=== PATIENT | female | born 1960 | race Caucasian/White ===

== ENCOUNTER → 2016-05-11 | Outpatient (CLI) | payer OTHER ==
[~2016-05-11] VITALS: Ht 167.6 cm; Wt 62.8 kg
[~2016-05-11] MED LIST: ATV/1 PO; CEFAZOLIN 2000 MG/60 ML D5W IV SCH; CLR10 PO; CYCL10TA6 PO; FLUT50SP45 NAE; GABA800T PO; HYDR-5688 PO; LACTATED RINGER'S 1000ML 1,000 ML IV SCH; LEVO175T PO; MELATAB2 PO; NAPR-1169 PO; OXYC1TAB3 PO; PANT40TA PO; PRD/1 PO; PREGABALIN 75 MG CAP PO SCH; PRLSR20 PO; PSYL0.524 PO; RANI300T2 PO; ZOLP5TAB PO
[2016-05-11 09:06] VITALS: BMI 22.0
[2016-05-11 09:19] VITALS: Ht 167.6 cm; Wt 62.8 kg
--- NOTE | 2016-05-11 09:44 | PAT Medication Instructions ---
Service Date May 11, 2016. Current Home Medication List Gabapentin (Neurontin), 800 MG PO TID Levothyroxine Sodium (Synthroid), 175 MCG PO QAM Lorazepam (Ativan), 1 MG PO TID PRN for Anxiety Naproxen (Naprosyn), 500 MG PO PRN Omeprazole (Prilosec), 20 MG PO prn Psyllium (Metamucil), 1 DOSE PO QAM Zolpidem Tartrate (Ambien), 5 MG PO HS Medication Instructions For Your Scheduled Surgery - Hold the following medications per surgeon's instructions: Naproxen (Naprosyn), 500 MG PO PRN - Hold the following medications the morning of surgery: Psyllium (Metamucil), 1 DOSE PO QAM - Take the following medications the morning of surgery with a sip of water OTHERWISE NOTHING TO EAT OR DRINK AFTER MIDNIGHT: Gabapentin (Neurontin), 800 MG PO TID Levothyroxine Sodium (Synthroid), 175 MCG PO QAM Lorazepam (Ativan), 1 MG PO TID PRN for Anxiety Omeprazole (Prilosec), 20 MG PO prn - Take the following medications as scheduled the night before surgery: Zolpidem Tartrate (Ambien), 5 MG PO HS Gabapentin (Neurontin), 800 MG PO TID If you have any questions please call us at [phone] or [phone] or [phone]
[2016-05-11 10:18] LABS: BASO % 0.6 %; BASO ABS # 0.03 K/uL (0-0.2); COMPLETE YES; EOS % 3.1 %; HEMATOCRIT 38.7 % (37-47); IG% 0.4 %; LYMPH % 27.9 %; LYMPH ABS # 1.44 K/uL (1.2-3.4); MEAN CORPUSCULAR HEMOGLOBIN 29.3 pg (25-34); MEAN CORPUSCULAR HGB CONC 34.1 g/dl (32-36); MEAN PLATELET VOLUME 9.1 fL (7.4-10.4); MONO % 8.5 %; NEUT % 59.5 %; PLATELET COUNT 220 K/uL (130-400); WHITE BLOOD COUNT 5.17 K/uL (4.8-10.8)
--- NOTE | 2016-05-11 10:19 | DIAGNOSTIC IMAGING REPORT ---
CHEST PREADMISSION(PA/LAT) HISTORY: Preop. COMPARISON: Chest 03/25/2014. FINDINGS: The lungs are clear. Cardiac silhouette is normal in size. No pleural effusions. No pneumothorax. IMPRESSION: No acute process. Electronically signed by: Duane Harris M.D. 05/11/2016 10:18 AM Dictated Date/Time: 05/11/2016 10:16 AM
== END | disposition home or self-care (01) ==
LOC: C.LAB 08:00 → EDSTATUS 06-02 09:00
PROVIDERS: ATTEND Orthopaedic Surgery Orthopaedic Surgery of the Spine
DX: Z01.810 Encounter for preprocedural cardiovascular examination (principal); Z01.811 Encounter for preprocedural respiratory examination; Z01.812 Encounter for preprocedural laboratory examination

== ENCOUNTER 2016-05-28 14:20 | Emergency (ER) | payer OTHER ==
[~2016-05-28] VITALS: Ht 167.6 cm; Wt 63.5 kg
[~2016-05-28 14:20] MED LIST changes: -CEFAZOLIN 2000 MG/60 ML D5W IV SCH; -CLR10 PO; -CYCL10TA6 PO; -FLUT50SP45 NAE; -HYDR-5688 PO; -LACTATED RINGER'S 1000ML 1,000 ML IV SCH; -MELATAB2 PO; -OXYC1TAB3 PO; -PANT40TA PO; -PRD/1 PO; -PREGABALIN 75 MG CAP PO SCH; -PRLSR20 PO; -RANI300T2 PO
[2016-05-28 14:36] VITALS: TEMP 36.7; Ht 167.6 cm; Wt 63.5 kg
[2016-05-28] MEDS ORDERED: KETOROLAC TROMETHAMINE 60 MG/2 ML VIAL IM STA (15:02)
[2016-05-28] MEDS ORDERED: OXYC1TAB3 PO (15:04)
[2016-05-28] MEDS ORDERED: CYCL10TA6 PO (15:04)
--- NOTE | 2016-05-28 15:06 | EMERGENCY ROOM VISIT NOTE ---
History First contact with patient: 14:45 Chief Complaint: BACK PAIN Stated Complaint: BACK AND LEG PAIN History of Present Illness The patient is a 55 year old female who presents to the Emergency Room via private vehicle with complaints of "back and leg pain". The patient states that last night around 9 PM, she noticed pain in the right low back extending down the posterior portion of the right leg to level of the knee. She notes it is worse with standing and walking. She rates the pain is a 3/10. She believes she may have had this before. She states that she follows with Dr. Prabhakar of [facility] for her spine. She is scheduled for an appointment on Tuesday. She at this time denies any chest pain, shortness of breath, history of kidney stones, urinary symptoms, lower extremity weakness, numbness or tingling in genital region. There is urinary incontinence of which the patient notes is chronic and unrelated. Review of Systems A complete 6-point Review of Systems was discussed with the patient, with pertinent positives and negatives listed in the History of Present Illness. All remaining Review of Systems questions can be considered negative unless otherwise specified. Past Medical/Surgical History Stomach problems, gallbladder ailments, urinary problems, diverticulitis, hiatal hernia, cholecystectomy, spinal fusion Family History Cancer, emphysema and leukemia. Social History Smoking Status: Former Smoker Social History: Patient lives at home with boyfriend. Current/Historical Medications Scheduled Cyclobenzaprine Hcl (Flexeril), 10 MG PO TID Gabapentin (Neurontin), 800 MG PO TID Levothyroxine Sodium (Synthroid), 175 MCG PO QAM Psyllium (Metamucil), 1 DOSE PO QAM Scheduled PRN Lorazepam (Ativan), 1 MG PO TID PRN for Anxiety Naproxen (Naprosyn), 500 MG PO BID PRN for Pain Omeprazole (Prilosec), 20 MG PO QAM PRN for Acid Reflux Oxycodone Ir (Roxicodone Ir), 1-2 TAB PO Q6H PRN for Pain Zolpidem Tartrate (Ambien), 5 MG PO HS PRN for Sleep Allergies Coded Allergies: Sulfamethoxazole w/Trimethoprim (Verified Allergy, Unknown, itching, ) Physical Exam Vital Signs Date Time Temp Pulse Resp B/P Pulse Ox O2 Delivery O2 Flow Rate FiO2 05/28/16 15:13 80 16 116/77 97 Room Air 05/28/16 14:36 36.7 76 16 122/82 98 Room Air Physical Exam VITAL SIGNS - Vital signs and nursing notes were reviewed. Afebrile, normotensive, non-tachycardic and is saturating well on room air 98%. GENERAL -55 [id number] female appearing her stated age who is in no acute distress. Communicates well with provider and answers questions appropriately. SKIN - Without rashes. No petechiae or meningeal rashes. The skin overlying the back is unremarkable. HEAD - NC/AT. NECK - Neck with FROM. Supple to palpation. No lymphadenopathy noted. No nuchal rigidity. No C-spine tenderness. MUSCULOSKELETAL: No tenderness to palpation overlying the entire spine. There is right inferior lumbar paraspinous muscular tenderness that extends into the right gluteal region extending down the right posterior leg to the level of the knee. LUNGS - Chest wall symmetric without accessory muscle use, intercostals retractions, or central cyanosis. Normal vesicular breath sounds CTA B/L. No wheezes, rales, or rhonchi appreciated. CARDIAC - RRR with S1/S2. No murmur, rubs, or gallops appreciated. ABDOMEN - Abdominal contour Without pulsations or visible masses. BS normoactive all four quadrants. No tenderness, palpable masses, hepatosplenomegaly, or ascites noted. EXTREMITIES - No clubbing or peripheral cyanosis. No pretibial edema present. +3 /5 radial, posterior tibial, and dorsalis pedis pulses palpated throughout. +5/ 5 strength noted in UE/LE bilaterally.negative straight leg raise. She is neurovascularly intact in the lower extremity. Medical Decision & Procedures Medications Administered Medications (Trade) Dose Ordered Sig/Lilliana Route Start Time Stop Time Status Last Admin Dose Admin Ketorolac Tromethamine (Toradol Inj) 60 mg NOW STAT IM 05/28/16 15:02 05/28/16 15:03 DC 05/28/16 15:10 60 MG Medical Decision Patient was seen and evaluated as above. After obtaining a thorough history and physical examination it was evident the patient was experiencing likely right lumbar strain, with potential piriformis syndrome. I do not believe that this time radiographs are imaging would be of benefit. The patient presents with symptoms suggestive of nerve irritation of the right lower extremity. I do not suspect any emergent MRI at this time. She denied any cauda equina syndrome symptoms, and has no urinary symptoms. No history of kidney stone. The pain is reducible palpation. She will be provided with a short-term supply of pain medication. Here she was provided with 60 mg of Toradol IM. She will be discharged home with OxyIR and Flexeril. I do not write steroids at this time, she has a surgery scheduled for the near future I do not want to disrupt potential blood work. She was educated upon management, is to return with worsening, educated upon worrisome symptoms which to return, and was discharged home in good condition. In evaluation treatment this patient following differential diagnoses were entertained: Lumbar strain, piriformis syndrome, cauda equina syndrome, among others. [place] Drug Monitoring Program Search Results: patient reviewed within database, no issues identified Impression Primary Impression: Strain of lumbar region Additional Impression: Right lumbar radiculopathy Departure Information Dispostion Home / Self-Care Condition GOOD Prescriptions Cyclobenzaprine Hcl (FLEXERIL) 10 Mg Tab 10 MG PO TID for 5 Days, #15 TAB Prov: Behzad Mcclendon PA-C 05/28/16 Oxycodone Ir (Roxicodone Ir) 5 Mg Tab 1-2 TAB PO Q6H Y for Pain, #15 TAB For Initial Treatment Prov: Behzad Mcclendon PA-C 05/28/16 Referrals César Heredia M.D. (PCP) Patient Instructions My [facility] Additional Instructions You have been treated in the Emergency Department for Back Pain. You have been prescribed Oxy IR to be used for pain control. This is a narcotic medication. You cannot drive or consume alcohol while on this medicine. This medicine should only be used for pain that cannot be controlled with over-the- counter pain medicines. You have been prescribed Flexeril (cyclobenzaprine) 1 tabs orally, three times per day. Do NOT exceed 30 mg (6 tabs) per day. Take your first dose at bedtime as it can make you drowsy. Always take all medications as prescribed. For pain control, you can use the following [id number] medicines (if >12 yo): - Regular strength (325mg/tab) Tylenol (acetaminophen) 2 tabs every 4-6 hours as needed. Do not exceed 12 tablets in a 24 hour period. Avoid taking more than 3 grams (3000 mg) of Tylenol per day. This includes any other sources of acetaminophen you may take on a regular basis. - Regular strength (200 mg/tab) Advil (ibuprofen) 1-2 tabs every 4-6 hours as needed. Do not exceed a dose of 3200 mg per day. If this is an acute injury, ice can be applied to the area of pain for the first 3 days to help decrease pain and inflammation. After the first 3 days, a heating pad can be used over the area for continued soothing relief. Please keep your appointment for Tuesday with Dr. Prabhakar. Return to the Emergency Department if your current symptoms worsen despite treatment course outlined above, or if you develop any of the following symptoms : intractable pain despite aforementioned treatment course, loss of control of your bowel or bladder, numbness or tingling in your groin, or development of a fever. Please return to emergency department with any new/concerning symptoms. Problem Qualifiers
[2016-05-28 15:13] VITALS: BP 116/77; PULSE 80; O2SAT 97
[2016-05-28] MEDS ORDERED: PRLSR20 PO (15:36)
[2016-08-19] MEDS ORDERED: PANT40TA PO (14:12)
[2016-08-19] MEDS ORDERED: CLR10 PO (14:12)
[2016-08-19] MEDS ORDERED: FLUT50SP45 NAE (14:12)
[2016-08-19] MEDS ORDERED: RANI300T2 PO (14:12)
== END 2016-05-28 15:30 | disposition home or self-care (01) ==
LOC: C.EDB 14:21 → C.EDD 15:30
DX: S39.012A Strain of muscle, fascia and tendon of lower back, initial encounter (principal); X58.XXXA Exposure to other specified factors, initial encounter; M54.16 Radiculopathy, lumbar region; Z80.9 Family history of malignant neoplasm, unspecified; Z83.6 Family history of other diseases of the respiratory system; Z87.891 Personal history of nicotine dependence; Z79.899 Other long term (current) drug therapy

== ENCOUNTER 2016-06-06 12:19 | Emergency (ER) | payer OTHER ==
[~2016-06-06] VITALS: Ht 167.6 cm; Wt 65.0 kg
[~2016-06-06 12:19] MED LIST changes: +OXYC1TAB3 PO; +PRLSR20 PO
[2016-06-06 12:22] VITALS: TEMP 36.7; Ht 167.6 cm; Wt 65.0 kg
--- NOTE | 2016-06-06 14:02 | DIAGNOSTIC IMAGING REPORT ---
MRI OF THE LUMBAR SPINE WITHOUT CONTRAST CLINICAL HISTORY: Severe back pain. Right leg weakness and numbness. COMPARISON STUDY: Lumbar spine fluoroscopic images April 04, 2014. TECHNIQUE: Utilizing a 1.5 Ayanna magnet and dedicated coil, multiplanar, multiecho imaging of the lumbar spine was performed without IV contrast. FINDINGS: For purposes of numbering on this exam, the L5-S1 disc space is assigned to axial image 23 of 25. There are findings consistent with an L4-L5 discectomy, posterior decompression and bilateral pedicle screw fusion. No intracanalicular mass or fluid collection is present. The conus terminates at the lower L1 level. Paravertebral soft tissues are unremarkable. L1-2: The central canal and neural foramen are patent. L2-3: There is mild disc bulge, ligamentous hypertrophy and facet arthrosis. There is a possible right paracentral disc protrusion with mass effect upon the exiting right L2 nerve root. L3-4: There is disc bulge, ligamentous hypertrophy and facet arthrosis. There is mild narrowing of the central canal, lateral recesses and neural foramen. L4-5: Central canal and neural foramen are patent. L5-S1: Central canal and neural foramen are patent. IMPRESSION: 1. Status post L4-5 discectomy, posterior decompression and bilateral pedicle screw fusion. 2. Suspected right paracentral disc protrusion at L2-L3 with mild mass effect upon the exiting right L2 nerve root. 3. Mild central canal, lateral recess and neural foraminal stenosis at L3-L4. Electronically signed by: Kraig Gay M.D. 06/06/2016 2:00 PM Dictated Date/Time: 06/06/2016 1:51 PM
[2016-06-06] MEDS ORDERED: DEXAMETHASONE SOD INJ 10 MG/ML VIAL IM ONE (14:45)
[2016-06-06 14:59] VITALS: BP 105/83; PULSE 90; O2SAT 98
--- NOTE | 2016-06-06 17:57 | EMERGENCY ROOM VISIT NOTE ---
History Report prepared by Raheel: Catracho Dale Under the Supervision of: Dr. Keanu Burton M.D. First contact with patient: 12:33 Chief Complaint: BACK PAIN Stated Complaint: SEVERE BACK PAIN History of Present Illness The patient is a 55 year old female who presents to the Emergency Room with complaints of constant right lower back pain beginning ten days prior to arrival. She currently rates her discomfort as an 8/10 in severity. The patient associates back pain that radiates down her right leg to her right knee and numbness in the front of her right thigh. She notes the numbness began five days ago and states the sensation feels different when scratching. The patient states her symptoms worsen with standing and walking. She denies falling. The patient states she took a sleeping pill after the onset, and the following morning she came to the ED for evaluation. She notes she was scheduled for neck surgery the following Tuesday, but when she went to see Dr. Prabhakar on Tuesday that he cancelled the neck surgery. The patient states her orthopedist gave her Tramadol that did not relieve her discomfort. She notes he was going to order an MRI but never got an appointment for it, so he called a nurse at her insurance company, who referred the patient to the ED. The patient notes a history of back surgery two years ago. She denies loss of control of her bowel or bladder, numbness in the genitals, fever, and abdominal pain. Source of History: patient Onset: 10 days [employer] Position: back (right lower) Symptom Intensity: 8/10 Timing: constant Modifying Factors (Worsening): other (standing and walking) Associated Symptoms: + back pain (radiates down her right leg to her right knee ), + numbness (in front of right thigh), No abdominal pain, No fevers, No urinary symptoms Review of Systems See HPI for pertinent positives & negatives. A total of 10 systems reviewed and were otherwise negative. Past Medical & Surgical Medical Problems: (1) Diverticulitis (2) Hiatal hernia (3) IBS (irritable bowel syndrome) Surgical Problems: (1) S/P cholecystectomy (2) S/P spinal fusion Family History Cancer Social History Smoking Status: Former Smoker Marital Status: Occupation Status: unemployed Current/Historical Medications Scheduled Gabapentin (Neurontin), 800 MG PO TID Levothyroxine Sodium (Synthroid), 175 MCG PO QAM Psyllium (Metamucil), 2 TBS PO QAM Scheduled PRN Lorazepam (Ativan), 1 MG PO TID PRN for Anxiety Naproxen (Naprosyn), 500 MG PO BID PRN for Pain Omeprazole (Prilosec), 20 MG PO QAM PRN for Acid Reflux Zolpidem Tartrate (Ambien), 5 MG PO HS PRN for Sleep Allergies Coded Allergies: Sulfamethoxazole w/Trimethoprim (Verified Allergy, Unknown, itching, ) Physical Exam Vital Signs Date Time Temp Pulse Resp B/P Pulse Ox O2 Delivery O2 Flow Rate FiO2 06/06/16 14:59 90 16 105/83 98 Room Air 06/06/16 14:00 90 16 108/77 97 Room Air 06/06/16 12:22 36.7 102 20 121/80 94 Room Air Physical Exam Constitutional: Vital signs reviewed. Eyes: Pupils are equal round reactive to light. Conjunctiva are noninjected. ENT: Pharynx is clear without erythema or exudate. Mucous membranes are moist. Neck supple without meningeal signs. Respiratory: Clear to auscultation bilaterally. Breath sounds are equal bilaterally. Cardiovascular: Regular rate and rhythm. No rubs or gallops. GI: Soft, nondistended and nontender. Bowel sounds are present. Musculoskeletal: No peripheral edema. No lower extremity tenderness. Integumentary: No cyanosis. Neurological: The patient is awake and alert. Slightly diminished strength proximally in the right leg. DTRs intact bilaterally in the lower extremities. Sensation intact to light touch throughout the lower extremities. Negative straight leg raise bilaterally. Psychiatric: Normal affect. Medical Decision & Procedures ER Provider Diagnostic Interpretation: MRI results as stated below per my review and radiologist interpretation. MRI OF THE LUMBAR SPINE WITHOUT CONTRAST CLINICAL HISTORY: Severe back pain. Right leg weakness and numbness. COMPARISON STUDY: Lumbar spine fluoroscopic images April 04, 2014. TECHNIQUE: Utilizing a 1.5 Ayanna magnet and dedicated coil, multiplanar, multiecho imaging of the lumbar spine was performed without IV contrast. FINDINGS: For purposes of numbering on this exam, the L5-S1 disc space is assigned to axial image 23 of 25. There are findings consistent with an L4-L5 discectomy, posterior decompression and bilateral pedicle screw fusion. No intracanalicular mass or fluid collection is present. The conus terminates at the lower L1 level. Paravertebral soft tissues are unremarkable. L1-2: The central canal and neural foramen are patent. L2-3: There is mild disc bulge, ligamentous hypertrophy and facet arthrosis. There is a possible right paracentral disc protrusion with mass effect upon the exiting right L2 nerve root. L3-4: There is disc bulge, ligamentous hypertrophy and facet arthrosis. There is mild narrowing of the central canal, lateral recesses and neural foramen. L4-5: Central canal and neural foramen are patent. L5-S1: Central canal and neural foramen are patent. IMPRESSION: 1. Status post L4-5 discectomy, posterior decompression and bilateral pedicle screw fusion. 2. Suspected right paracentral disc protrusion at L2-L3 with mild mass effect upon the exiting right L2 nerve root. 3. Mild central canal, lateral recess and neural foraminal stenosis at L3-L4. Electronically signed by: Kraig Gay M.D. 06/06/2016 2:00 PM Medications Administered Medications (Trade) Dose Ordered Sig/Lilliana Route Start Time Stop Time Status Last Admin Dose Admin Dexamethasone Sodium Phosphate (Decadron Inj) 10 mg NOW ONCE IM 06/06/16 14:45 06/06/16 14:46 DC 06/06/16 14:56 10 MG ED Course 1236: The patient was evaluated in room B10. A complete history and physical exam was performed. 1416: Reevaluated and updated the patient about her MRI results. She notes she just finished a course of steroids, as well. 1431: I spoke to Dr. Prabhakar, [facility] (Orthopedic Surgery) about the patient's case, and he recommended giving the patient a shot of Decadron and will see the patient at 9 AM tomorrow. 1445: Ordered Decadron Inj 10 mg IM. 1447: Upon reevaluation, the patient appeared to have improvement of her symptoms. I discussed tonight's findings with her. She verbalized agreement of the treatment plan and is happy with the plan. The patient was discharged home. Medical Decision This is a 55-year-old female presents with back pain rating down her right leg with some numbness. Differential diagnosis includes lumbar disc disease, spinal stenosis, radiculopathy, compression fracture, cauda equina syndrome. I did perform a limited focused review of portions of the patient's old chart on the electronic medical record. The patient was evaluated on May 28 for back pain radiating down the leg. She follows up with Dr. Prabhakar. The patient was treated with Toradol and discharged with Oxy IR and Flexeril. She has a prior history of a spinal fusion. I did evaluate the patient as noted above. The patient is presenting with pain in her lower back rating down her leg with some numbness and subjective weakness to the leg. I did order an MRI of the lumbar spine. I did review the images myself as well as the radiology report as described above. She does have disc protrusion at the L2 level consistent with her symptoms. There is no cauda equina syndrome. I did discuss the case and MRI results with Dr. Powell , her orthopedic spine surgeon. He recommended giving her shot of Decadron and he will see her tomorrow morning at 9 AM. I did discuss the results with the patient. She was happy with this plan and will see Dr. Powell tomorrow. She was given a IM shot of 10 g of Decadron. She was discharged in good condition. Consults Time Called: 1414 Consulting Physician: Dr. Prabhakar, [facility] (Orthopedic Surgery) Returned Call: [address] Prabhakar, [facility] (Orthopedic Surgery) about the patient's case, and he recommended giving the patient a shot of Decadron and will see the patient at 9 AM tomorrow. Impression Primary Impression: Lumbar radiculopathy Scribe Attestation The scribe's documentation has been prepared under my direct and personally reviewed by me in its entirety. I confirm that the note above accurately reflects all work, treatment, procedures, and medical decision making performed by me. Departure Information Dispostion Home / Self-Care Referrals César Heredia M.D. (PCP) Forms HOME CARE DOCUMENTATION FORM, IMPORTANT VISIT INFORMATION Patient Instructions Lumbar Radiculopathy, My [facility] Additional Instructions You have been examined and treated today on an emergency basis only. This is not a substitute for, or an effort to provide, complete comprehensive medical care. It is impossible to recognize and treat all injuries or illnesses in a single emergency department visit. It is therefore important that you follow up closely with Dr. Powell at 9 AM tomorrow. Return for worsening symptoms or if you develop fever, vomiting, abdominal pain, loss of control of your bowel or bladder, new or worsening numbness or weakness to your legs, numbness to your private area, difficulty urinating, or any other concerning symptoms.
[2016-08-19] MEDS ORDERED: CLR10 PO (14:12)
[2016-08-19] MEDS ORDERED: PANT40TA PO (14:12)
[2016-08-19] MEDS ORDERED: RANI300T2 PO (14:12)
[2016-08-19] MEDS ORDERED: FLUT50SP45 NAE (14:12)
== END 2016-06-06 15:01 | disposition home or self-care (01) ==
LOC: C.EDB 12:19
DX: M54.16 Radiculopathy, lumbar region (principal); M51.26 Other intervertebral disc displacement, lumbar region; K44.9 Diaphragmatic hernia without obstruction or gangrene; K58.9 Irritable bowel syndrome, unspecified; Z87.891 Personal history of nicotine dependence

== ENCOUNTER 2016-06-17 12:56 | Emergency (ER) | payer OTHER ==
[~2016-06-17] VITALS: Ht 167.6 cm; Wt 65.3 kg
[~2016-06-17 12:56] MED LIST changes: -OXYC1TAB3 PO
[2016-06-17 13:06] VITALS: TEMP 36.7; Ht 167.6 cm; Wt 65.3 kg
[2016-06-17] MEDS ORDERED: PRD/1 PO (13:46)
--- NOTE | 2016-06-17 14:07 | EMERGENCY ROOM VISIT NOTE ---
History First contact with patient: 13:17 Chief Complaint: ARM PAIN Stated Complaint: R ARM PAIN- NO STRENGTH-STUCK History of Present Illness The patient is a 55 year old female who presents to the Emergency Room with complaints of right arm weakness and pain for the past 5 days. Patient states that she woke from sleep with a dull ache in her right shoulder that radiated into her lower arm. She has been unable to raise her arm above shoulder level due to weakness. She denies any weakness in her hand grasp or difficulty with coordination. She denies numbness or tingling in the arm. She denies injury to the neck or arm. She does note a history of 3 bulging disks in her cervical spine and states that she was to have surgery on her neck by Dr. Prabhakar, but states that this was postponed. She denies headache, vision changes, confusion or memory problems, chest pain, shortness of breath, difficulty walking, abdominal pain, bowel or bladder dysfunction. Review of Systems GENERAL: Denies fevers, chills, malaise, fatigue, unintentional weight changes. HEENT: Denies dizziness, visual problems, hearing loss, tinnitus. Denies difficulty swallowing or oral lesions. PULMONARY: Denies cough, shortness of breath, sputum production or hemoptysis. CARDIOVASCULAR: Denies chest pain, palpitations, dyspnea on exertion, orthopnea or peripheral edema. GASTROINTESTINAL: Denies diarrhea, constipation, nausea, vomiting, or abdominal pain. GENITOURINARY: Denies dysuria, frequency, urgency or nocturia. NEUROLOGIC: Denies history of epilepsy, CVA, TIA or chronic headaches. MUSCULOSKELETAL: Denies history of joint tenderness/swelling. + Right arm weakness. SKIN: Denies rashes or lesions. PSYCHIATRIC: Denies history of depression or mental illness. ENDOCRINE: Denies history of diabetes, thyroid disorders, abnormal hair growth or sexual dysfunction. Past Medical/Surgical History Medical Problems: (1) Diverticulitis (2) Hiatal hernia (3) IBS (irritable bowel syndrome) Surgical Problems: (1) S/P cholecystectomy (2) S/P spinal fusion Family History Cancer Social History Smoking Status: Never Smoker Marital Status: Occupation Status: unemployed Current/Historical Medications Scheduled Gabapentin (Neurontin), 800 MG PO TID Levothyroxine Sodium (Synthroid), 175 MCG PO QAM Prednisone (Prednisone), Unknown Dose PO DIRECTED Psyllium (Metamucil), 2 TBS PO QAM Scheduled PRN Hydrocodone/Acetaminophen 5MG/325MG (Arcata 5MG/325MG), 1 TABLET PO Q6H PRN for Pain Lorazepam (Ativan), 1 MG PO TID PRN for Anxiety Naproxen (Naprosyn), 500 MG PO BID PRN for Pain Omeprazole (Prilosec), 20 MG PO QAM PRN for Acid Reflux Zolpidem Tartrate (Ambien), 5 MG PO HS PRN for Sleep Allergies Coded Allergies: Sulfamethoxazole w/Trimethoprim (Verified Allergy, Unknown, itching, ) Physical Exam Vital Signs Date Time Temp Pulse Resp B/P Pulse Ox O2 Delivery O2 Flow Rate FiO2 06/17/16 16:49 93 18 124/80 97 Room Air 06/17/16 14:50 94 16 95/66 99 Room Air 06/17/16 13:06 36.7 101 18 121/78 97 Room Air Physical Exam CONSTITUTIONAL: No acute distress. Well appearing and well nourished. Alert and oriented X 4 with normal affect. HEENT: Normocephalic, atraumatic. Pupils equal, round and reactive to light, EOMI. TMs normal. Pharynx normal. NECK: Supple, full active range of motion without discomfort. RESPIRATORY: Clear to auscultation bilaterally with no wheezing, crackles, rhonchi or stridor. Equal expansion bilaterally. CARDIOVASCULAR: Regular rate and rhythm with no murmurs, rubs or gallops. Normal peripheral perfusion. No edema. GASTROINTESTINAL: Soft, nontender, nondistended. Bowel sounds present in all quadrants. MUSCULOSKELETAL: Full range of motion of all joints without discomfort. INTEGUMENTARY: No rash or other significant dermatologic conditions noted. NEUROLOGIC: Cranial nerves II-XII grossly intact. Right upper extremity proximal weakness 3/5, and distal weakness, 4/5. Equal hand grasp strength. Left upper extremity 5/5. Normal sensation bilateral upper extremities to sharp and dull touch. Medical Decision & Procedures ER Provider Diagnostic Interpretation: CERVICAL SPINE MRI HISTORY: right arm weakness, known bulging discs C-spine TECHNIQUE: Multiplanar multisequence MRI of the cervical spine was performed without the use of contrast. COMPARISON STUDY: None. FINDINGS: Straightening of the cervical spine. Alignment is intact. No fractures. Prevertebral soft tissues and the C1-C2 interval are intact. Cervical spinal cord demonstrates a normal signal intensity. The visualized posterior fossa is unremarkable. There is a 7 mm hemangioma at T2. Moderate disc space narrowing at C4-C5 and C6-C7. Severe disc space narrowing at C5-C6. C2-C3: No significant central canal or neural foraminal narrowing. C3-C4: No significant central canal or neural foraminal narrowing. C4-C5: Small broad-based posterior disc bulge with a right foraminal focal disc protrusion. This compresses the exiting right nerve root and results in moderate to severe right-sided neural foraminal narrowing. This measures 5 mm in size. No significant left-sided neural foraminal narrowing or central canal narrowing. C5-C6: Broad-based posterior disc bulge which abuts but does not significantly deform the anterior cord. There is severe left and moderate right neural foraminal narrowing due to the uncovertebral hypertrophy. C6-C7: Small broad-based posterior disc bulge resulting in partial effacement of the anterior thecal sac without cord deformity. Bilateral uncovertebral hypertrophy results in moderate bilateral neural foraminal narrowing. C7-T1: No significant central canal or neural foraminal narrowing. IMPRESSION: 1. Straightening of the cervical spine. 2. Degenerative disc disease seen at C4-C5, C5-C6, and C6-C7 as described above. There is an associated right foraminal focal disc protrusion at C4-C5 which compresses the exiting nerve root at this level. Medications Administered Medications (Trade) Dose Ordered Sig/Lilliana Route Start Time Stop Time Status Last Admin Dose Admin Dexamethasone Sodium Phosphate (Decadron Inj) 10 mg NOW STAT IM 06/17/16 15:51 06/17/16 15:53 DC 06/17/16 16:54 10 MG ED Course Patient was evaluated at bedside, history of physical exam performed. Orders were placed for MRI of the cervical spine to evaluate for nerve root compression, disc protrusion, bony abnormality. Patient discussed with Dr. Velasquez, who agrees with my assessment and plan. MRI results reviewed, findings discussed with the patient. I spoke on the phone with Nneka Rose PA-C, who works with Dr. Gross at [facility]. She is aware of the MRI results. She agrees with one dose of Decadron today, but doubts any benefit with additional steroids, given multiple recent courses. She will arrange for patient to follow up outpatient in clinic on Tuesday. Patient updated on results and plan for discharge, follow-up, and return precautions, she verbalized understanding. Medical Decision CC: Patient presenting with complaint of right arm pain and weakness. Differential Diagnosis: Includes, but not limited to cervical spine stenosis, radiculopathy, degenerative disc disease, nerve root compression, musculoskeletal pain. Summary: Patient is alert and oriented, no acute distress, pleasant on examination. Patient has notable weakness in the right upper extremity, 3/5 of the proximal extremity, 4/5 of the distal extremity. She is unable to lift the arm above the level of the shoulder. She has normal sensation of the arm. She has no pain with range of motion of the shoulder or elbow joints. Neurologic exam is otherwise normal with no other findings. MRI of the cervical spine ordered, which shows right foraminal focal disc protrusion C4-C5 causing compression of the nerve root. 10 mg of IM Decadron given in the ED. Patient reassessed multiple times throughout ED stay, and progressing as expected. Patient was also provided with Rx for 3 days of Arcata for pain control at home until her follow-up appointment with [facility]. Patient was discussed with and independently examined by the attending physician , who agrees with my assessment and disposition. Impression Primary Impression: Weakness of right arm Additional Impression: Cervical nerve root compression Departure Information Dispostion Home / Self-Care Condition GOOD Prescriptions Hydrocodone/Acetaminophen 5MG/325MG (Arcata 5MG/325MG) Tab 1 TABLET PO Q6H Y for Pain for 3 Days, #12 TAB PRN PAIN Prov: Chel Funes CRNP 06/17/16 Referrals César Heredia M.D. (PCP) Patient Instructions Cervical Spine Disk Probs, My [facility] Additional Instructions Dr. Prabhakar's office will call you to set up a follow-up appointment for Tuesday. Please keep this appointment. You may continue to use Tylenol and ibuprofen or Aleve as needed for pain. Apply ice or heat to the area may also be helpful. You may take Arcata as needed for severe pain. Do not drive, operate machinery, or drink alcohol while you're taking this medication, as it may make you drowsy. Please return to the ER for worsening symptoms, including complete numbness or worsening weakness of the arm, severe worsening pain that is not treated with medication, or any other concerns. Problem Qualifiers
--- NOTE | 2016-06-17 14:59 | DIAGNOSTIC IMAGING REPORT ---
CERVICAL SPINE MRI HISTORY: right arm weakness, known bulging discs C-spine TECHNIQUE: Multiplanar multisequence MRI of the cervical spine was performed without the use of contrast. COMPARISON STUDY: None. FINDINGS: Straightening of the cervical spine. Alignment is intact. No fractures. Prevertebral soft tissues and the C1-C2 interval are intact. Cervical spinal cord demonstrates a normal signal intensity. The visualized posterior fossa is unremarkable. There is a 7 mm hemangioma at T2. Moderate disc space narrowing at C4-C5 and C6-C7. Severe disc space narrowing at C5-C6. C2-C3: No significant central canal or neural foraminal narrowing. C3-C4: No significant central canal or neural foraminal narrowing. C4-C5: Small broad-based posterior disc bulge with a right foraminal focal disc protrusion. This compresses the exiting right nerve root and results in moderate to severe right-sided neural foraminal narrowing. This measures 5 mm in size. No significant left-sided neural foraminal narrowing or central canal narrowing. C5-C6: Broad-based posterior disc bulge which abuts but does not significantly deform the anterior cord. There is severe left and moderate right neural foraminal narrowing due to the uncovertebral hypertrophy. C6-C7: Small broad-based posterior disc bulge resulting in partial effacement of the anterior thecal sac without cord deformity. Bilateral uncovertebral hypertrophy results in moderate bilateral neural foraminal narrowing. C7-T1: No significant central canal or neural foraminal narrowing. IMPRESSION: 1. Straightening of the cervical spine. 2. Degenerative disc disease seen at C4-C5, C5-C6, and C6-C7 as described above. There is an associated right foraminal focal disc protrusion at C4-C5 which compresses the exiting nerve root at this level. Electronically signed by: Duane Harris M.D. 06/17/2016 2:58 PM Dictated Date/Time: 06/17/2016 2:50 PM
[2016-06-17] MEDS ORDERED: DEXAMETHASONE SOD INJ 4 MG/ML VIAL IM STA (15:51)
[2016-06-17 16:49] VITALS: BP 124/80; PULSE 93; O2SAT 97
[2016-06-17] MEDS ORDERED: HYDR-5688 PO (17:06)
[2016-08-19] MEDS ORDERED: RANI300T2 PO (14:12)
[2016-08-19] MEDS ORDERED: FLUT50SP45 NAE (14:12)
[2016-08-19] MEDS ORDERED: PANT40TA PO (14:12)
[2016-08-19] MEDS ORDERED: CLR10 PO (14:12)
== END 2016-06-17 17:29 | disposition home or self-care (01) ==
LOC: C.EDB 12:57 → C.EDA 17:29
DX: M62.81 Muscle weakness (generalized) (principal); M50.10 Cervical disc disorder with radiculopathy, unspecified cervical region; Z87.19 Personal history of other diseases of the digestive system; K58.9 Irritable bowel syndrome, unspecified; Z80.9 Family history of malignant neoplasm, unspecified; Z79.899 Other long term (current) drug therapy

== ENCOUNTER → 2016-08-31 | Day surgery (SDC) | payer OTHER ==
[2016-08-19 14:13] VITALS: Ht 167.6 cm; Wt 63.6 kg
[~2016-08-31] VITALS: Ht 167.6 cm; Wt 63.6 kg
[~2016-08-31] MED LIST changes: -ATV/1 PO; +CLR10 PO; +FENTANYL CITRATE INJ 50 MCG/1 ML 2 ML VIAL ONE; +FLUT50SP45 NAE; +LIDOCAINE HCL 2% 2 ML VIAL (20MG/ML) ONE; +MIDAZOLAM HCL 1 MG/ML 2ML VIAL ONE; +PANT40TA PO; -PRLSR20 PO; +PROPOFOL IV EMULSION 10 MG/ML 20 ML VIAL IV ONE; +RANI300T2 PO
--- NOTE | 2016-08-31 09:57 | Endo History and Physical ---
History & Physical Date of Service: Aug 31, 2016. Chief Complaint: Dysphagia Hoarseness, GERD Referring Physician: Dr Gomez History of Present Illness 55 yo CF who presents for EGD secondary to GERD and dysphagia. Past Medical History Arthritis, Reflux, Thyroid Disease Past Surgical History Hx Cardiac Surgery: No Hx Internal Defibrillator: No Hx Pacemaker: No Hx Abdominal Surgery: Yes (TYA) Hx of Implantable Prosthesis: No Hx Post-Op Nausea and Vomiting: No Hx Cancer Surgery: No Hx Thoracic Surgery: No Hx Orthopedic: Yes (LOWER BACK FUSION) Hx Urinary Tract Surgery: No Family History None Social History Smoking Status: Former Smoker Hx Substance Use: No Hx Alcohol Use: Yes (OCCASIONAL) Allergies Coded Allergies: Sulfamethoxazole w/Trimethoprim (Verified Allergy, Unknown, ITCHING, ) Current Medications Reported Home Medications Medications Dose Route/Sig Max Daily Dose Days Date Category Allergy Nasal [place] 24 Ho (Fluticasone Propionate (Nasal)) 50 Mcg/Act Spr 2 [place] EDMUND HS 08/19/16 Reported Claritin (Loratadine) 10 Mg Tab 10 Mg PO HS 08/19/16 Reported Protonix (Pantoprazole Sodium) 40 Mg Tab 40 Mg PO QAM 08/19/16 Reported Zantac (Ranitidine HCl) 300 Mg Tab 300 Mg PO HS 08/19/16 Reported Naprosyn (Naproxen) 500 Mg Tab 500 Mg PO BID PRN 05/11/16 Reported Metamucil (Psyllium) 0.52 Gm Cap 2 Tbs PO QAM 05/11/16 Reported Ambien (Zolpidem Tartrate) 5 Mg Tab 5-10 Mg PO HS PRN 05/11/16 Reported Neurontin (Gabapentin) 800 Mg Tab 800 Mg PO TID 05/11/16 Reported Synthroid (Levothyroxine Sodium) 175 Mcg Tab 175 Mcg PO QAM 07/28/15 Reported Vital Signs Weight (Kilograms): 63.64 Height (Feet): 5 Height (Inches): 6 Date Time Temp Pulse Resp B/P (MAP) Pulse Ox O2 Delivery O2 Flow Rate FiO2 08/31/16 09:34 36.7 81 18 93/71 (78) 100 Room Air Physical Exam General Appearance: WD/WN, no apparent distress Respiratory/Chest: Auscultation: breath sounds normal Cardiovascular: Heart Auscultation: RRR Abdomen: Bowel Sounds: normal Inspection & Palpation: soft, non-distended, no tenderness, guarding & rebound Assessment and Plan Assessment: 55 yo CF who presents for EGD secondary to GERD and dysphagia. Plan: Proceed with EGD.
--- NOTE | 2016-08-31 10:06 | Discharge Instructions ---
Endoscopy Patient Instructions Date / Procedure(s) Performed Aug 31, 2016. EGD Allergy Information Coded Allergies: Sulfamethoxazole w/Trimethoprim (Verified Allergy, Unknown, ITCHING, ) Discharge Date / Findings Aug 31, 2016. Gastric ulcer s/p biopsy Gastritis s/p biopsies Medication Instructions OK to resume all medications today as prescribed Reported Home Medications Medications Dose Route/Sig Max Daily Dose Days Date Category Allergy Nasal [place] 24 Ho (Fluticasone Propionate (Nasal)) 50 Mcg/Act Spr 2 [place] EDMUND HS 08/19/16 Reported Claritin (Loratadine) 10 Mg Tab 10 Mg PO HS 08/19/16 Reported Protonix (Pantoprazole Sodium) 40 Mg Tab 40 Mg PO QAM 08/19/16 Reported Zantac (Ranitidine HCl) 300 Mg Tab 300 Mg PO HS 08/19/16 Reported Naprosyn (Naproxen) 500 Mg Tab 500 Mg PO BID PRN 05/11/16 Reported Metamucil (Psyllium) 0.52 Gm Cap 2 Tbs PO QAM 05/11/16 Reported Ambien (Zolpidem Tartrate) 5 Mg Tab 5-10 Mg PO HS PRN 05/11/16 Reported Neurontin (Gabapentin) 800 Mg Tab 800 Mg PO TID 05/11/16 Reported Synthroid (Levothyroxine Sodium) 175 Mcg Tab 175 Mcg PO QAM 07/28/15 Reported Provider Instructions Activity Restrictions - No exercising or heavy lifting for 24 hours. - Do not drink alcohol the day of the procedure. - Do not drive a car or operate machinery until the day after the procedure. - Do not make any important decisions or sign important papers in 24 hours after the procedure. Following Day: - Return to full activity which may include returning to work/school. Diet Start your diet with liquids and light foods (jello, soup, juice, toast). Then eat your usual diet if not nauseated. Treatment For Common After Affects For mild abdominal pain, bloating, or excessive gas: - Rest - Eat lightly - Lie on right side Follow-Up Information Follow-up with Dr Gomez as scheduled Anesthesia Information What You Should Know You have had a procedure that required some medicine to reduce anxiety and discomfort. This treatment is called moderate sedation. After receiving the treatment, you may be sleepy, but you will be able to breathe on your own. The effects of the treatment may last for several hours. Follow these instructions along with Activity/Diet recommendations noted above: * Do NOT do anything where dizziness or clumsiness would be dangerous. * Rest quietly at home today, then you can be up and about tomorrow. * Have a responsible person stay with you the rest of today. * You may have had an I.V. today. If so, you may take the dressing off later today. Recommendations Call your doctor if: * Trouble breathing * Continuous vomiting for more than 24 hours * Temperature above 101 degrees * Severe abdominal pain or bloating * Pain not relieved by pain medicine ordered * There is increased drainage or redness from any incision * A large amount of rectal bleeding greater than 2-3 tablespoons. (If you had a polyp/s removed or have hemorrhoids, a small amount of blood - from the rectum is to be expected.) * You have any unanswered questions or concerns. IN THE EVENT OF A SERIOUS EMERGENCY, GO TO THE NEAREST EMERGENCY ROOM Your discharge instructions were prepared by provider Golden Griffin. Patient Instructions Signature Page Marie Augustin Patient (or Guardian) Signature/Date: I have read and understand the instructions given to me by my caregivers. Caregiver/RN/Doctor Signature/Date: The above-named patient and/or guardian has received patient instructions on this date. + Original Patient Signature Page (only) stays with chart. Please make copy for patient.
--- NOTE | 2016-08-31 10:32 | GI REPORT ---
Procedure Date: 08/31/2016 9:50 AM Procedure: Upper GI endoscopy Indications: Dysphagia, Heartburn Medicines: Monitored Anesthesia Care Complications: No immediate complications. Estimated Blood Loss: Estimated blood loss: none. Procedure: Pre-Anesthesia Assessment: - Prior to the procedure, a History and Physical was performed, and patient medications and allergies were reviewed. The patient's tolerance of previous anesthesia was also reviewed. The risks and benefits of the procedure and the sedation options and risks were discussed with the patient. All questions were answered, and informed consent was obtained. Prior Anticoagulants: The patient has taken no previous anticoagulant or antiplatelet agents. ASA Grade Assessment: II - A patient with mild systemic disease. After reviewing the risks and benefits, the patient was deemed in satisfactory condition to undergo the procedure. After obtaining informed consent, the endoscope was passed under direct vision. Throughout the procedure, the patient's blood pressure, pulse, and oxygen saturations were monitored continuously. The Scope was introduced through the mouth, and advanced to the second part of duodenum. The upper GI endoscopy was accomplished without difficulty. The patient tolerated the procedure well. Findings: The examined esophagus was normal. One non-bleeding cratered gastric ulcer with no stigmata of bleeding was found in the gastric antrum. The lesion was 5 mm in largest dimension. Biopsies were taken with a cold forceps for histology. Localized moderate inflammation characterized by erythema was found in the gastric antrum. Biopsies were taken with a cold forceps for histology. The examined duodenum was normal. Impression: - Normal esophagus. - Non-bleeding gastric ulcer with no stigmata of bleeding. Biopsied. - Gastritis. Biopsied. - Normal examined duodenum. Recommendation: - Resume previous diet. - Continue present medications. - Await pathology results. - Return to primary care physician as previously scheduled. Golden Griffin DO 08/31/2016 10:31:46 AM This report has been signed electronically. Note Initiated On: 08/31/2016 9:50 AM I attest to the content of the Intraoperative Record and orders documented therein, exceptions below
[2016-08-31 10:42] VITALS: BP 99/69; PULSE 80; O2SAT 98
--- NOTE | 2016-08-31 11:02 | Anesthesiology Progress Note ---
Anesthesia Post Op Note Date & Time Aug 31, 2016 at 11:01 Vital Signs Pain Intensity: 0 Vital Signs Past 12 Hours Date Time Temp Pulse Resp B/P (MAP) Pulse Ox O2 Delivery O2 Flow Rate FiO2 08/31/16 10:42 80 16 99/69 (79) 98 Room Air 08/31/16 10:27 80 16 97/58 (71) 99 Room Air 08/31/16 10:17 74 16 93/55 (68) 96 Room Air 08/31/16 10:12 80 16 88/53 (65) 96 Room Air 08/31/16 09:34 36.7 81 18 93/71 (78) 100 Room Air Notes Mental Status: alert / awake / arousable, participated in evaluation Pt Amnestic to Procedure: Yes Nausea / Vomiting: adequately controlled Pain: adequately controlled Airway Patency, RR, SpO2: stable & adequate BP & HR: stable & adequate Hydration State: stable & adequate Anesthetic Complications: no major complications apparent
== END | disposition home or self-care (01) ==
LOC: C.GI 08:45
PROVIDERS: ATTEND Internal Medicine
DX: R13.10 Dysphagia, unspecified (principal); R49.0 Dysphonia; K25.9 Gastric ulcer, unspecified as acute or chronic, without hemorrhage or perforation; K29.70 Gastritis, unspecified, without bleeding; K21.9 Gastro-esophageal reflux disease without esophagitis; M19.90 Unspecified osteoarthritis, unspecified site; Z90.49 Acquired absence of other specified parts of digestive tract; Z98.1 Arthrodesis status; Z87.891 Personal history of nicotine dependence; E03.9 Hypothyroidism, unspecified; F41.9 Anxiety disorder, unspecified

== ENCOUNTER → 2016-09-27 | Outpatient (CLI) | payer OTHER ==
[~2016-09-27] MED LIST changes: -FENTANYL CITRATE INJ 50 MCG/1 ML 2 ML VIAL ONE; -LIDOCAINE HCL 2% 2 ML VIAL (20MG/ML) ONE; -MIDAZOLAM HCL 1 MG/ML 2ML VIAL ONE; -PROPOFOL IV EMULSION 10 MG/ML 20 ML VIAL IV ONE
--- NOTE | 2016-09-27 15:47 | DIAGNOSTIC IMAGING REPORT ---
SI JOINTS 3 OR MORE VIEWS CLINICAL HISTORY: 55 years-old Female presenting with chronic low back pain, sciatic pain radiating down the right leg to the knee, history of fusion. TECHNIQUE: Frontal and bilateral oblique views of the sacroiliac joints were obtained. COMPARISON: Correlation made to CT from 2016. FINDINGS: Tubal ligation clips noted. Posterior lumbar fusion of L4-5 with interbody spacer. Sacroiliac joints demonstrate osteophytosis consistent with degenerative change. No evidence of osseous fusion. Arcuate lines intact. Hip joints grossly congruent. Moderate stool burden noted. IMPRESSION: Degenerative changes of the sacroiliac joints. Electronically signed by: Mansoor Sloan M.D. 09/27/2016 3:45 PM Dictated Date/Time: 09/27/2016 3:43 PM
--- NOTE | 2016-09-27 15:55 | DIAGNOSTIC IMAGING REPORT ---
LUMBAR SPINE 5 VIEWS CLINICAL HISTORY: Chronic low back pain. FINDINGS: Five views of the lumbar spine are correlated with MRI of lumbar spine dated 06/06/2016. The skeletal structures are osteopenic. There is no radiographic evidence of fracture or malalignment. Vertebral body height and alignment are maintained throughout the lumbar spine. There are postoperative changes from laminectomy and posterior fusion at L5-S1. Interpedicular screws are present at both levels. The orthopedic hardware appears intact. Small anterior osteophytes are seen throughout. The transverse processes appear intact. There is evidence of discectomy at L4-L5. Mild to moderate disc space narrowing is seen at L1-L2, L2-L3, and L3-L4. The visualized sacrum and bony pelvis appear intact. Sclerotic change is noted in the sacroiliac joints. Cholecystectomy clips are noted. Surgical clips and phleboliths are seen in the pelvis. There is a nonobstructed abdominal bowel gas pattern. IMPRESSION: 1. No acute bony abnormality is seen involving the lumbosacral spine. 2. Osteopenia with postoperative and mild degenerative change as above. Dictated: 09/27/2016 3:48 PM Transcribed: 09/27/2016 3:55 PM [place] Electronically signed by: Shukri Doe M.D. 09/27/2016 4:13 PM Dictated Date/Time: 09/27/2016 3:48 PM
[2016-09-27 17:29] LABS: TOTAL IRON BINDING CAPACITY 356 mcg/dl (250-450)
[2016-10-02 04:31] LABS: ANTI-CENTROMERE AB <1.0 NEG AI (<1.0 NEG); ANTI-SS-A <1.0 NEG AI (<1.0 NEG); ANTI-SS-B <1.0 NEG AI (<1.0 NEG); DNA ds CRITHIDIA NEGATIVE (NEGATIVE); Sm Antibody <1.0 NEG AI (<1.0 NEG)
== END | disposition home or self-care (01) ==
LOC: C.RAD 14:58
PROVIDERS: ATTEND Internal Medicine Rheumatology
DX: M54.12 Radiculopathy, cervical region (principal); M54.5 Low back pain

== ENCOUNTER → 2016-10-01 | Outpatient (CLI) | payer OTHER | END | disposition home or self-care (01) | LOC: C.LABSPEC 17:06 | PROVIDERS: ATTEND Physician Assistant | DX: N94.9 Unspecified condition associated with female genital organs and menstrual cycle (principal); L29.8 Other pruritus ==

== ENCOUNTER → 2016-10-26 | Outpatient (CLI) | payer OTHER | END | disposition home or self-care (01) | LOC: C.LABSPEC 15:51 | PROVIDERS: ATTEND Physician Assistant | DX: N94.9 Unspecified condition associated with female genital organs and menstrual cycle (principal) ==

== ENCOUNTER → 2017-03-31 | Outpatient (CLI) | payer OTHER | END | disposition home or self-care (01) | LOC: C.LABSPEC 17:36 | PROVIDERS: ATTEND Physician Assistant | DX: N89.8 Other specified noninflammatory disorders of vagina (principal) ==

== ENCOUNTER → 2017-05-30 | Outpatient (CLI) | payer OTHER | LOC: C.LABSPEC 17:43 | PROVIDERS: ATTEND Obstetrics & Gynecology | DX: N94.9 Unspecified condition associated with female genital organs and menstrual cycle (principal) ==

== ENCOUNTER → 2017-09-09 | Outpatient (CLI) | payer OTHER ==
[~2017-09-09] MED LIST changes: -NAPR-1169 PO; +NAPR-22 PO
--- NOTE | 2017-09-09 14:33 | DIAGNOSTIC IMAGING REPORT ---
R HAND MIN 3 VIEWS ROUTINE, L HAND MIN 3 VIEWS ROUTINE CLINICAL HISTORY: M79.641 Bilateral hand [id number] COMPARISON STUDY: None. FINDINGS: No fracture or dislocation within the right or left hand. Soft tissues are unremarkable. Mild osteoarthritis within the DIP joint of the right index finger and interphalangeal joints of the thumb's. Possible tiny periarticular erosions at the head of the middle phalanx of the left middle finger. No erosive change within the right hand. IMPRESSION: 1. Possible tiny periarticular erosion at the head of the middle phalanx of the left middle finger. 2. 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 Electronically signed by: Duane Harris M.D. 09/09/2017 2:32 PM Dictated Date/Time: 09/09/2017 2:26 PM
--- NOTE | 2017-09-09 14:33 | DIAGNOSTIC IMAGING REPORT ---
R HAND MIN 3 VIEWS ROUTINE, L HAND MIN 3 VIEWS ROUTINE CLINICAL HISTORY: M79.641 Bilateral hand [id number] COMPARISON STUDY: None. FINDINGS: No fracture or dislocation within the right or left hand. Soft tissues are unremarkable. Mild osteoarthritis within the DIP joint of the right index finger and interphalangeal joints of the thumb's. Possible tiny periarticular erosions at the head of the middle phalanx of the left middle finger. No erosive change within the right hand. IMPRESSION: 1. Possible tiny periarticular erosion at the head of the middle phalanx of the left middle finger. 2. 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 Electronically signed by: Duane Harris M.D. 09/09/2017 2:32 PM Dictated Date/Time: 09/09/2017 2:26 PM
[2017-09-09 15:53] LABS: TRANSFERRIN 278 mg/dl (200-360)
== END | disposition home or self-care (01) ==
LOC: C.RAD1850 14:07
PROVIDERS: ATTEND Internal Medicine Rheumatology
DX: M79.641 Pain in right hand (principal); M79.642 Pain in left hand; M54.12 Radiculopathy, cervical region; M54.5 Low back pain; M85.80 Other specified disorders of bone density and structure, unspecified site; E55.9 Vitamin D deficiency, unspecified

== ENCOUNTER 2020-12-19 14:32 | Observation (INO) ==
--- NOTE | 2020-12-19 17:20 | Emergency Department Note ---
History of Present Illness General Chief Complaint: Abdominal Pain Stated Complaint: REF BY - ACUTE APPENDICITIS Time Seen by Provider: 12/19/20 17:11 History of Present Illness Provider Complaint: abdominal pain Onset (ago): 1 day(s) Pain Consistency: constant Severity: moderate Maximum Pain Intensity: 0 Current Pain Intensity: 6 Quality: + stabbing and + sharp Relieved By: + nothing Exacerbated By: + nothing Context: no foreign travel, no possible food poisoning, no sick contacts, no recent antibiotic use, no recent surgery/procedure or no recent injury Associated Symptoms: no nausea, no vomiting, no diarrhea, no fever, no chills, no constipation, no dysuria, no hematemesis, no hematochezia, no melena, no hematuria, no anorexia, no syncope, no headache, no neck pain, no back pain, no chest pain, no weakness, no breathing difficulty and no numbness Home Medications Medication Instructions Recorded Confirmed Type lorazepam 1 mg tablet 0.5 - 1 mg PO HS PRN 02/14/18 12/19/20 History zolpidem 10 mg tablet (Ambien) 10 mg PO HS PRN 02/14/18 12/19/20 History levothyroxine 125 mcg capsule 125 mcg PO DAILY 01/23/20 12/19/20 History cholecalciferol (vitamin D3) 25 25 mcg PO DAILY 02/28/20 12/19/20 History mcg (1,000 unit) capsule gabapentin 800 mg tablet 800 mg PO TID tab 03/11/20 12/19/20 History omeprazole 40 mg capsule,delayed 40 mg PO BID #60 cap 04/22/20 12/19/20 Rx release multivitamin 1 tab PO DAILY 12/11/20 12/19/20 History rizatriptan 10 mg tablet (Maxalt) See Rx Instructions PO .COMPLEX 12/11/20 12/19/20 History amitriptyline 10 mg tablet 10 mg PO DAILY 12/19/20 12/19/20 History celecoxib 200 mg capsule 200 mg PO DAILY 12/19/20 12/19/20 History duloxetine 60 mg capsule,delayed 60 mg PO QAM 12/19/20 12/19/20 History release fluoride (sodium) 1.1 % dental 1 applic DENTAL UD 12/19/20 12/19/20 History cream (Denta 5000 Plus) ipratropium bromide 42 mcg (0.06 1 spray INTRANASAL UD 12/19/20 12/19/20 History %) nasal spray magnesium oxide 400 mg (241.3 mg 400 mg PO DAILY 12/19/20 12/19/20 History magnesium) tablet meloxicam 15 mg tablet 15 mg PO DAILY 12/19/20 12/19/20 History metronidazole 500 mg tablet 500 mg PO BID 12/19/20 12/19/20 History nystatin 500,000 unit tablet 500,000 unit PO UD 12/19/20 12/19/20 History oxybutynin chloride 5 mg tablet 5 mg PO DAILY 12/19/20 12/19/20 History riboflavin (vitamin B2) 400 mg 400 mg PO DAILY 12/19/20 12/19/20 History tablet Allergies Allergy/AdvReac Type Severity Reaction Status Date / Time Bactrim Allergy Unknown ITCHING Verified 08/31/16 09:08 ciprofloxacin [From Cipro] Allergy Unknown yeast Verified 12/19/20 17:15 infection sulfamethoxazole Allergy Unknown ITCHING Verified 12/19/20 17:15 trimethoprim Allergy Unknown ITCHING Verified 12/19/20 17:15 Past Med/Surg History Medical History Anxiety Chronic neck pain CERVICAL EPIDURAL STEROID INJECTIONS. PT HAS 3 BULGING DISCS. OCCASIONAL ARM NUMBNESS. FULL ROM, OCCASIONAL PAIN WITH MOVEMENT. FOLLOWS WITH DR. WONG. Degenerative disc disease Diverticular disease GERD (gastroesophageal reflux disease) Hiatal hernia Hypothyroidism Migraine Osteoarthritis Peptic ulcer disease Urinary tract infection OCCASIONAL Surgical History Fusion of spine LUMBAR AREA History of cholecystectomy LAP History of colonoscopy History of esophagogastroduodenoscopy (EGD) Family History Sister Family history of reaction to anesthesia "WOKE UP STIFF A BOARD" WITH HYSTERECTOMY (~10 YEARS AGO, AT [facility]). Mother Leukemia Denies family history of Crohn's disease Colorectal cancer IBS (irritable bowel syndrome) Social History Smoking Status: Never smoker Second Hand Exposure: No; Hx Alcohol Use: Yes Alcohol type: wine and hard liquor Hx Substance Use: No Preferred Language: Gibraltarian Communication Ability: Effective Window Dresser Required: No Beliefs That Will Affect Care: None Current Living Situation: Significant Other Feels Safe at Home: Yes Assistive Devices: None Review of Systems A total of 10 systems reviewed and were otherwise negative Physical Exam Vital Signs: Vital Signs - 24 hr 12/19/20 14:48 12/19/20 18:28 12/19/20 19:34 Temperature 37.1 C 36.7 C Temperature Source Temporal Artery Sc an Oral Pulse Rate 86 Pulse Rate [Apical ] Pulse Rate [Finger ] 83 Pulse Rate [Right Radial] 85 Pulse Rhythm [Apic al] Pulse Rhythm [Righ t Radial] Regular Pulse Strength [Ap ical] Pulse Strength [Ri ght Radial] Normal Respiratory Rate 20 18 16 Respiratory Effort / Characteristics Non-Labored Sponta neous Non-Labored Sponta neous Respiratory Depth Normal Normal Respiratory Patter n Regular Regular Blood Pressure 118/75 Blood Pressure [Le ft Arm] 127/82 127/82 Blood Pressure Catherine n 89 Blood Pressure Catherine n [Left Arm] 97 97 Blood Pressure Pos ition [Left Arm] Lying Semi-fowlers Pulse Oximetry 96 98 99 Oxygen Delivery Me thod Room Air Room Air Oxygen Flow Rate Sepsis Recent Feve r Within 48 Hours No Sepsis New/Unexpla ined Change in Men sandy Status N/A Sepsis Action Take n by Nursing No Action Required 12/19/20 20:52 12/19/20 21:00 12/19/20 21:10 Temperature 36.4 C L Temperature Source Temporal Artery Sc an Pulse Rate Pulse Rate [Apical ] 78 73 71 Pulse Rate [Finger ] Pulse Rate [Right Radial] Pulse Rhythm [Apic al] Regular Regular Regular Pulse Rhythm [Righ t Radial] Pulse Strength [Ap ical] Normal Normal Normal Pulse Strength [Ri ght Radial] Respiratory Rate 15 16 21 Respiratory Effort / Characteristics Non-Labored Sponta neous Non-Labored Sponta neous Non-Labored Sponta neous Respiratory Depth Normal Normal Normal Respiratory Patter n Regular Regular Regular Blood Pressure Blood Pressure [Le ft Arm] 130/81 132/81 123/80 Blood Pressure Catherine n Blood Pressure Catherine n [Left Arm] 97 98 94 Blood Pressure Pos ition [Left Arm] Lying Lying Lying Pulse Oximetry 100 100 100 Oxygen Delivery Me thod Nasal Cannula Nasal Cannula Nasal Cannula Oxygen Flow Rate 6 6 6 Sepsis Recent Feve r Within 48 Hours Sepsis New/Unexpla ined Change in Men sandy Status Sepsis Action Take n by Nursing 12/19/20 21:20 12/19/20 21:30 12/19/20 21:40 Temperature 36.1 C L Temperature Source Temporal Artery Sc an Pulse Rate Pulse Rate [Apical ] 70 70 73 Pulse Rate [Finger ] Pulse Rate [Right Radial] Pulse Rhythm [Apic al] Regular Regular Regular Pulse Rhythm [Righ t Radial] Pulse Strength [Ap ical] Normal Normal Normal Pulse Strength [Ri ght Radial] Respiratory Rate 12 18 16 Respiratory Effort / Characteristics Non-Labored Sponta neous Non-Labored Sponta neous Non-Labored Sponta neous Respiratory Depth Normal Normal Normal Respiratory Patter n Regular Regular Regular Blood Pressure Blood Pressure [Le ft Arm] 137/84 128/79 126/78 Blood Pressure Catherine n Blood Pressure Catherine n [Left Arm] 101 95 94 Blood Pressure Pos ition [Left Arm] Lying Lying Lying Pulse Oximetry 99 94 93 Oxygen Delivery Me thod Room Air Room Air Room Air Oxygen Flow Rate Sepsis Recent Feve r Within 48 Hours Sepsis New/Unexpla ined Change in Men sandy Status Sepsis Action Take n by Nursing Physical Exam: Physical Exam GENERAL: She is oriented to person, place, and time. She appears well-developed and well-nourished. She does not appear distressed. HENT: Exam performed. -Head: Normocephalic and atraumatic. -Right Ear: External ear normal. No mastoid tenderness. -Left Ear: External ear normal. No mastoid tenderness. -Mouth/Throat: The oropharynx is clear and moist. No trismus in the jaw. No dental abscesses or uvula swelling. No oropharyngeal exudate or tonsillar abscesses. EYES: Conjunctivae and EOM are normal. Pupils are equal, round, and reactive to light. Right eye exhibits no discharge. Left eye exhibits no discharge. No scleral icterus. NECK: Normal range of motion. Neck supple. No JVD present. No spinous process tenderness present. No carotid bruit present. No rigidity. No tracheal deviation and normal range of motion present. No Brudzinski's sign and no Kernig's sign noted. CV: Normal rate, regular rhythm, normal heart sounds and intact distal pulses. There is no peripheral edema. Palpable radial pulses bue. PULM/CHEST: Effort normal and breath sounds normal. No respiratory distress. No stridor. She has no wheezes. She has no rales. -Chest Wall: She exhibits no tenderness. ABD: The abdomen is soft. Bowel sounds are normal. She has no distension. No mass is present. There is tenderness to palpation of the RLQ. MUSC/SKEL: Normal range of motion. There is no peripheral edema, tenderness or deformity. LYMPH: No cervical adenopathy. NEURO: She is alert and oriented to person, place, and time. She has normal s trength. No cranial nerve deficit or sensory deficit. Coordination and gait normal. GCS eye subscore is 4. GCS verbal subscore is 5. GCS motor subscore is 6. Cerebellar tests wnl. SKIN: Skin is warm and dry. She is not diaphoretic. PSYCH: She has a normal mood and affect. Behavior is normal. Judgment and thought content normal. Course Course 1711: The patient was evaluated in room A12. A complete history and physical exa m was performed Cardiac monitoring: An order was placed for continuous cardiac monitoring. The monitor shows a rate of 70 with sinus rhythm EMR reviewed. Patient had an outpatient CAT scan which showed a dilated appendix. Clinically the patient does have appendicitis. Will discuss with surgery. 1720: Discussed with Dr. Fairchild. He states to give antibiotics he will be down to admit the patient. Administered Medications Fentanyl Citrate (Fentanyl Citrate 100 Mcg/2 Ml Vial) 50 mcg IV Q5M PRN PRN Reason: PACU Use Only-Pain Stop: 12/20/20 04:18 Last Admin: 12/19/20 21:28 Dose: 50 mcg Documented by: [id number] Admin: 12/19/20 21:07 Dose: 50 mcg Documented by: [id number] Admin: 12/19/20 20:58 Dose: 50 mcg Documented by: [id number] Ondansetron HCl (Ondansetron Inj 2 Mg/Ml 2 Ml Vial) 4 mg IV ONCE PRN PRN Reason: PACU Use Only-Nausea/Vomiting Stop: 12/20/20 04:19 Last Admin: 12/19/20 20:58 Dose: 4 mg Documented by: [id number] Discontinued Medications Bacitracin (Bacitracin Oint 15 Gm Tube) Confirm Administered Dose 45 appln .ROUTE .STK-MED ONE Stop: 12/19/20 18:42 Last Admin: 12/19/20 20:33 Dose: Not Given Documented by: [id number] Bupivacaine HCl (Bupivacaine 0.5 % 5 Mg/1 Ml Mpf 30ml Vial) Confirm Administered Dose 30 ml .ROUTE .STK-MED ONE Stop: 12/19/20 18:42 Last Admin: 12/19/20 20:34 Dose: 20 ml Documented by: [id number] Ceftriaxone Sodium (Rocephin) 1,000 mg in 50 mls @ 100 mls/hr IV NOW STA Stop: 12/19/20 17:52 Last Infusion: 12/19/20 18:12 Dose: 0 mls/hr Documented by: [id number] Admin: 12/19/20 17:40 Dose: 100 mls/hr Documented by: [id number] Metronidazole (Flagyl) 500 mg in 100 mls @ 100 mls/hr IV NOW STA Stop: 12/19/20 18:22 Last Admin: 12/19/20 18:25 Dose: 100 mls/hr Documented by: [id number] Lidocaine HCl (Lidocaine 1% Local 20 Ml Vial) Confirm Administered Dose 20 ml .ROUTE .STK-MED ONE Stop: 12/19/20 18:42 Last Admin: 12/19/20 20:34 Dose: 20 ml Documented by: [id number] Medical Decision Making Laboratory Data Result diagrams: 12/19/20 17:30 12/19/20 17:30 Lab Results 12/19/20 12/19/20 12/19/20 Range/Units 17:30 17:30 17:30 WBC 6.20 (4.8-10.8) K/uL RBC 4.38 (4.2-5.4) M/uL Hgb 13.1 (12.0-16.0) g/dL Hct 39.4 (37-47) % MCV 90.0 (80-100) fL MCH 29.9 (25-34) pg MCHC 33.2 (32-36) g/dL RDW Std Deviation 42.7 (36.4-46.3) fL RDW Coeff of Alesia 13.0 (11.5-14.5) % Plt Count 283 (130-400) K/uL MPV 9.2 (7.4-10.4) fL Immature Gran % (Auto) 0.2 % Neut % (Auto) 60.5 % Lymph % (Auto) 27.4 % Crosby % (Auto) 9.5 % Eos % (Auto) 1.9 % Baso % (Auto) 0.5 % Neut # (Auto) 3.75 (1.4-6.5) K/uL Lymph # (Auto) 1.70 (1.2-3.4) K/uL Crosby # (Auto) 0.59 (0.11-0.59) K/uL Eos # (Auto) 0.12 (0-0.5) K/uL Baso # (Auto) 0.03 (0-0.2) K/uL Immature Gran # (Auto) 0.01 (0.00-0.02) K/uL Sodium 139 (136-145) mmol/L Potassium 3.8 (3.5-5.1) mmol/L Chloride 107 (98-107) mmol/L Carbon Dioxide 28 (21-32) mmol/L Anion Gap 4.0 (3-11) BUN 9 (7-18) mg/dl Creatinine 0.70 (0.6-1.2) mg/dl Est Cr Clr Drug Dosing 79.0 ml/min Est GFR ( Amer) 108.4 ml/min Est GFR (Non-Af Amer) 93.5 ml/min BUN/Creatinine Ratio 12.6 (10-20) Glucose 98 (70-99) mg/dl Calcium 9.2 (8.5-10.1) mg/dl COVID-19 Eval Order Covid19 at [facility] SARS-CoV-2 (PCR) (Negative) 12/19/20 Range/Units 17:30 WBC (4.8-10.8) K/uL RBC (4.2-5.4) M/uL Hgb (12.0-16.0) g/dL Hct (37-47) % MCV (80-100) fL MCH (25-34) pg MCHC (32-36) g/dL RDW Std Deviation (36.4-46.3) fL RDW Coeff of Alesia (11.5-14.5) % Plt Count (130-400) K/uL MPV (7.4-10.4) fL Immature Gran % (Auto) % Neut % (Auto) % Lymph % (Auto) % Crosby % (Auto) % Eos % (Auto) % Baso % (Auto) % Neut # (Auto) (1.4-6.5) K/uL Lymph # (Auto) (1.2-3.4) K/uL Crosby # (Auto) (0.11-0.59) K/uL Eos # (Auto) (0-0.5) K/uL Baso # (Auto) (0-0.2) K/uL Immature Gran # (Auto) (0.00-0.02) K/uL Sodium (136-145) mmol/L Potassium (3.5-5.1) mmol/L Chloride (98-107) mmol/L Carbon Dioxide (21-32) mmol/L Anion Gap (3-11) BUN (7-18) mg/dl Creatinine (0.6-1.2) mg/dl Est Cr Clr Drug Dosing ml/min Est GFR ( Amer) ml/min Est GFR (Non-Af Amer) ml/min BUN/Creatinine Ratio (10-20) Glucose (70-99) mg/dl Calcium (8.5-10.1) mg/dl COVID-19 Eval Order SARS-CoV-2 (PCR) NEGATIVE (Negative) MDM Narrative 1711: The patient was evaluated in room A12. A complete history and physical exam was performed Cardiac monitoring: An order was placed for continuous cardiac monitoring. The monitor shows a rate of 70 with sinus rhythm EMR reviewed. Patient had an outpatient CAT scan which showed a dilated appendix. Clinically the patient does have appendicitis. Will discuss with surgery. 1720: Discussed with Dr. Fairchild. He states to give antibiotics he will be down to admit the patient. Impression & Plan Acute appendicitis Discharge Plan Visit Data Chief Complaint: Abdominal Pain Stated Complaint: REF BY - ACUTE APPENDICITIS Discharge Problem: Acute appendicitis Patient Disposition: Admitted As Inpatient Discharge Instructions Interventions: ED Discharge Assessment Last Done: 12/19/20 19:17
[2020-12-19] MEDS ORDERED: metroNIDAZOLE 500 MG/100 ML BAG IV STA (17:23)
[2020-12-19] MEDS ORDERED: cefTRIAXone SODIUM 1,000 MG/50 ML BAG IV STA (17:23)
[2020-12-19 17:42] LABS: Basophils # (auto) 0.03 K/uL (0-0.2); Basophils % (auto) 0.5 %; Eosinophils # (auto) 0.12 K/uL (0-0.5); Eosinophils % (auto) 1.9 %; Hematocrit (blood only) 39.4 % (37-47); Hemoglobin 13.1 g/dL (12.0-16.0); Immature Granulocytes # (auto) 0.01 K/uL (0.00-0.02); Immature Granulocytes % (auto) 0.2 %; Lymphocytes % (auto) 27.4 %; Mean Corpuscular Hemoglobin 29.9 pg (25-34); Mean Corpuscular Hgb Conc 33.2 g/dL (32-36); Mean Platelet Volume 9.2 fL (7.4-10.4); Monocytes # (auto) 0.59 K/uL (0.11-0.59); Monocytes % (auto) 9.5 %; Neutrophils # (auto) 3.75 K/uL (1.4-6.5); Neutrophils % (auto) 60.5 %; Platelet Count 283 K/uL (130-400); RDW Standard Deviation 42.7 fL (36.4-46.3); Red Blood Count 4.38 M/uL (4.2-5.4)
[2020-12-19 18:01] LABS: BUN Creatinine Ratio 12.6 (10-20); Calcium 9.2 mg/dl (8.5-10.1); Est GFR (African American) 108.4 ml/min; Est GFR (Non-African American) 93.5 ml/min; Potassium 3.8 mmol/L (3.5-5.1)
--- NOTE | 2020-12-19 18:39 | Surgery Consultation ---
Date of Consultation December 19, 2020 Assessment & Plan (1) Acute appendicitis: pt is a 60 year-old female who presents with RLQ apin, IMP: abdominal pain, RLQ pain, appendicitis, plan, I recommend to do laparoscopic appendectomy, possible open , D/W benefits, risks and alternatives of the surgery, the risks - infection, bleeding, abscess, injury other organs, may be negative for appendicitis, but still need to do appendectomy, UT, DVT, stroke, , incisional hernia, pt understood, she agrees with surgery, she signed informed consent, I answered all questions, pre- op antibiotic, History of Present Illness Reason for Consultation: acute appendicitis Attending Physician: Manish London MD FACS History of Present Illness History of Present Illness General Chief Complaint: Abdominal Pain Stated Complaint: REF BY DR- ACUTE APPENDICITIS Time Seen by Provider: 12/19/20 17:11 History of Present Illness Provider Complaint: abdominal pain Onset (ago): 1 day(s) Pain Consistency: constant Severity: moderate Maximum Pain Intensity: 0 Current Pain Intensity: 6 Quality: + stabbing and + sharp Relieved By: + nothing Exacerbated By: + nothing Context: no foreign travel, no possible food poisoning, no sick contacts, no recent antibiotic use, no recent surgery/procedure or no recent injury Associated Symptoms: no nausea, no vomiting, no diarrhea, no fever, no chills, no constipation, no dysuria, no hematemesis, no hematochezia, no melena, no hematuria, no anorexia, no syncope, no headache, no neck pain, no back pain, no chest pain, no weakness, no breathing difficulty and no numbness I ( Manish London MD, FACS) got a call for consult appendicitis, I reviewed pt's H/P, labs CT scan with pt, pt is still have RLQ pain, with nausea, no vomiting, Home Medications Medication Instructions Recorded Confirmed Type lorazepam 1 mg tablet 0.5 - 1 mg PO HS PRN 02/14/18 12/19/20 History zolpidem 10 mg tablet (Ambien) 10 mg PO HS PRN 02/14/18 12/19/20 History levothyroxine 125 mcg capsule 125 mcg PO DAILY 01/23/20 12/19/20 H istory cholecalciferol (vitamin D3) 25 25 mcg PO DAILY 02/28/20 12/19/20 History mcg (1,000 unit) capsule gabapentin 800 mg tablet 800 mg PO TID tab 03/11/20 12/19/20 Histor y omeprazole 40 mg capsule,delayed 40 mg PO BID #60 cap 04/22/20 Rx release multivitamin 1 tab PO DAILY 12/11/20 12/19/20 History rizatriptan 10 mg tablet (Maxalt) See Rx Instructions PO .COMPLEX 12/11/20 12/19/20 History amitriptyline 10 mg tablet 10 mg PO DAILY 12/19/20 12/19/20 Hist ory celecoxib 200 mg capsule 200 mg PO DAILY 12/19/20 12/19/20 Histor y duloxetine 60 mg capsule,delayed 60 mg PO QAM 12/19/20 1 History release fluoride (sodium) 1.1 % dental 1 applic DENTAL UD 12/19/20 12/19/20 History cream (Denta 5000 Plus) ipratropium bromide 42 mcg (0.06 1 spray INTRANASAL UD 12/19/2012/19 History %) nasal spray magnesium oxide 400 mg (241.3 mg 400 mg PO DAILY 12/19/20 1 History magnesium) tablet meloxicam 15 mg tablet 15 mg PO DAILY 12/19/20 12/19/20 History metronidazole 500 mg tablet 500 mg PO BID 12/19/20 12/19/20 His tory nystatin 500,000 unit tablet 500,000 unit PO UD 12/19/20 12/19/20 Hi story oxybutynin chloride 5 mg tablet 5 mg PO DAILY 12/19/20 12/19/20 History riboflavin (vitamin B2) 400 mg 400 mg PO DAILY 12/19/20 12/19/20 History tablet Allergies Allergy/AdvReac Type Severity Reaction Status Date / Time Bactrim Allergy Unknown ITCHING Verified 08/31/16 09:08 ciprofloxacin [From Cipro] Allergy Unknown yeast Verified 12/19/20 17:15 infection sulfamethoxazole Allergy Unknown ITCHING Verified 12/19/20 17:15 trimethoprim Allergy Unknown ITCHING Verified 12/19/20 17:15 Past Med/Surg History Medical History Anxiety Chronic neck pain CERVICAL EPIDURAL STEROID INJECTIONS. PT HAS 3 BULGING DISCS. OCCASIONAL ARM NUMBNESS. FULL ROM, OCCASIONAL PAIN WITH MOVEMENT. FOLLOWS WITH DR. WONG.Degenerative disc disease Diverticular disease GERD (gastroesophageal reflux disease) Hiatal hernia Hypothyroidism Migraine Osteoarthritis Peptic ulcer disease Urinary tract infection OCCASIONAL Surgical History Fusion of spine LUMBAR AREAHistory of cholecystectomy LAPHistory of colonoscopy History of esophagogastroduodenoscopy (EGD) Family History Sister Family history of reaction to anesthesia "WOKE UP STIFF A BOARD" WITH HYSTERECTOMY (~10 YEARS AGO, AT [facility]).Mother LeukemiaDenies family history of Crohn's disease Colorectal cancer IBS (irritable bowel syndrome) Social History Smoking Status: Never smoker Second Hand Exposure: No; Hx Alcohol Use: Yes Alcohol type: wine and hard liquor Hx Substance Use: No Preferred Language: Yoruba Communication Ability: Effective Business Development Sales Executive Required: No Beliefs That Will Affect Care: None Current Living Situation: Significant Other Feels Safe at Home: Yes Assistive Devices: None Review of Systems A total of 10 systems reviewed and were otherwise negative Allergies Allergy/AdvReac Type Severity Reaction Status Date / Time Bactrim Allergy Unknown ITCHING Verified 08/31/16 09:08 ciprofloxacin [From Cipro] Allergy Unknown yeast Verified 12/19/20 17:15 infection sulfamethoxazole Allergy Unknown ITCHING Verified 12/19/20 17:15 trimethoprim Allergy Unknown ITCHING Verified 12/19/20 17:15 Home Medications Medication Instructions Recorded Confirmed Type lorazepam 1 mg tablet 0.5 - 1 mg PO HS PRN 02/14/18 12/19/20 History zolpidem 10 mg tablet (Ambien) 10 mg PO HS PRN 02/14/18 12/19/20 History levothyroxine 125 mcg capsule 125 mcg PO DAILY 01/23/20 12/19/20 History cholecalciferol (vitamin D3) 25 25 mcg PO DAILY 02/28/20 12/19/20 History mcg (1,000 unit) capsule gabapentin 800 mg tablet 800 mg PO TID tab 03/11/20 12/19/20 History omeprazole 40 mg capsule,delayed 40 mg PO BID #60 cap 04/22/20 12/19/20 Rx release multivitamin 1 tab PO DAILY 12/11/20 12/19/20 History rizatriptan 10 mg tablet (Maxalt) See Rx Instructions PO .COMPLEX 12/11/20 12/19/20 History amitriptyline 10 mg tablet 10 mg PO DAILY 12/19/20 12/19/20 History celecoxib 200 mg capsule 200 mg PO DAILY 12/19/20 12/19/20 History duloxetine 60 mg capsule,delayed 60 mg PO QAM 12/19/20 12/19/20 History release fluoride (sodium) 1.1 % dental 1 applic DENTAL UD 12/19/20 12/19/20 History cream (Denta 5000 Plus) ipratropium bromide 42 mcg (0.06 1 spray INTRANASAL UD 12/19/20 12/19/20 History %) nasal spray magnesium oxide 400 mg (241.3 mg 400 mg PO DAILY 12/19/20 12/19/20 History magnesium) tablet meloxicam 15 mg tablet 15 mg PO DAILY 12/19/20 12/19/20 History metronidazole 500 mg tablet 500 mg PO BID 12/19/20 12/19/20 History nystatin 500,000 unit tablet 500,000 unit PO UD 12/19/20 12/19/20 History oxybutynin chloride 5 mg tablet 5 mg PO DAILY 12/19/20 12/19/20 History riboflavin (vitamin B2) 400 mg 400 mg PO DAILY 12/19/20 12/19/20 History tablet Patient History Medical History Anxiety Chronic neck pain CERVICAL EPIDURAL STEROID INJECTIONS. PT HAS 3 BULGING DISCS. OCCASIONAL ARM NUMBNESS. FULL ROM, OCCASIONAL PAIN WITH MOVEMENT. FOLLOWS WITH DR. WONG. Degenerative disc disease Diverticular disease GERD (gastroesophageal reflux disease) Hiatal hernia Hypothyroidism Migraine Osteoarthritis Peptic ulcer disease Urinary tract infection OCCASIONAL Surgical History Fusion of spine LUMBAR AREA History of cholecystectomy LAP History of colonoscopy History of esophagogastroduodenoscopy (EGD) Family History Sister Family history of reaction to anesthesia "WOKE UP STIFF A BOARD" WITH HYSTERECTOMY (~10 YEARS AGO, AT [facility]). Mother Leukemia Denies family history of Crohn's disease Colorectal cancer IBS (irritable bowel syndrome) Social History Smoking Status: Never smoker Second Hand Exposure: No; Hx Alcohol Use: Yes Alcohol type: wine and hard liquor Hx Substance Use: No Preferred Language: Yoruba Communication Ability: Effective Business Development Sales Executive Required: No Beliefs That Will Affect Care: None Current Living Situation: Significant Other Feels Safe at Home: Yes Assistive Devices: None Physical Exam Constitutional: WD/WN, vitals as above Eyes: PERRL, conjunctivae normal, anicteric sclerae Neck: trachea midline, no thyromegaly Respiratory: normal respiratory effort, lungs clear to auscultation Cardiovascular: RRR, no murmur, no edema Gastrointestinal (Abdomen): soft, tenderness at RLQ , with rebound pain, BS +, no distend, Musculoskeletal: no cyanosis or clubbing, extremities motor strength 5/5 Neurologic: patellar DTR's 2+ bilat, sensation intact Psychiatric: A+Ox3, euthymic affect Results & Data ([facility]) Vital Signs (Past 12 Hours) Vital Signs Temp Pulse Pulse Resp BP BP Pulse Ox 12/19/20 18:28 85 18 127/82 98 12/19/20 14:48 37.1 C 86 20 118/[address] scan- other hospital- 8 mm appendix, possible appendicitis,
[2020-12-19] MEDS ORDERED: LIDOCAINE 1% LOCAL 20 ML VIAL ONE (18:41)
[2020-12-19] MEDS ORDERED: BACITRACIN OINT 15 GM TUBE ONE (18:41)
[2020-12-19] MEDS ORDERED: BUPIVACAINE 0.5 % 5 MG/1 ML MPF 30ML VIAL ONE (18:41)
--- NOTE | 2020-12-19 18:45 | History & Physical Bridge Note ---
Date of Service December 19, 2020 History & Physical Bridge Note I have examined the patient, reviewed the History & Physical and in the interval since the performance of the History & Physical I have noted the following changes of clinical significance: no changes noted
[2020-12-19] MEDS ORDERED: MIDAZOLAM HCL 1 MG/ML 2ML VIAL ONE (19:38)
[2020-12-19] MEDS ORDERED: fentaNYL citrate 100 MCG/2 ML VIAL ONE (19:38)
--- NOTE | 2020-12-19 20:17 | Anesthesiology Consultation ---
Date of Service December 19, 2020 Assessment & Plan Chart Review Chart Review: Acceptable Risk for Surgery Consults Requested none History Surgery Operation Date: 12/19/20 19:30 Proposed Procedures p Laparoscopic Appendectomy - Manish London MD Height/Weight Height: 5 ft 6 in Weight: 68 kg Allergies Allergy/AdvReac Type Severity Reaction Status Date / Time Bactrim Allergy Unknown ITCHING Verified 08/31/16 09:08 ciprofloxacin [From Cipro] Allergy Unknown yeast Verified 12/19/20 17:15 infection sulfamethoxazole Allergy Unknown ITCHING Verified 12/19/20 17:15 trimethoprim Allergy Unknown ITCHING Verified 12/19/20 17:15 Medications Home Medications Medication Instructions Recorded Confirmed Last Taken lorazepam 1 mg tablet 0.5 - 1 mg PO HS PRN 02/14/18 12/19/20 02/20/18 zolpidem 10 mg tablet (Ambien) 10 mg PO HS PRN 02/14/18 12/19/20 02/20/18 levothyroxine 125 mcg capsule 125 mcg PO DAILY 01/23/20 12/19/20 Unknown cholecalciferol (vitamin D3) 25 25 mcg PO DAILY 02/28/20 12/19/20 Unknown mcg (1,000 unit) capsule gabapentin 800 mg tablet 800 mg PO TID tab 03/11/20 12/19/20 Unknown omeprazole 40 mg capsule,delayed 40 mg PO BID #60 cap 04/22/20 12/19/20 Unknown release multivitamin 1 tab PO DAILY 12/11/20 12/19/20 Unknown rizatriptan 10 mg tablet (Maxalt) See Rx Instructions PO .COMPLEX 12/11/20 12/19/20 Unknown amitriptyline 10 mg tablet 10 mg PO DAILY 12/19/20 12/19/20 Unknown celecoxib 200 mg capsule 200 mg PO DAILY 12/19/20 12/19/20 Unknown duloxetine 60 mg capsule,delayed 60 mg PO QAM 12/19/20 12/19/20 Unknown release fluoride (sodium) 1.1 % dental 1 applic DENTAL UD 12/19/20 12/19/20 Unknown cream (Denta 5000 Plus) ipratropium bromide 42 mcg (0.06 1 spray INTRANASAL UD 12/19/20 12/19/20 Unknown %) nasal spray magnesium oxide 400 mg (241.3 mg 400 mg PO DAILY 12/19/20 12/19/20 Unknown magnesium) tablet meloxicam 15 mg tablet 15 mg PO DAILY 12/19/20 12/19/20 Unknown metronidazole 500 mg tablet 500 mg PO BID 12/19/20 12/19/20 Unknown nystatin 500,000 unit tablet 500,000 unit PO UD 12/19/20 12/19/20 Unknown oxybutynin chloride 5 mg tablet 5 mg PO DAILY 12/19/20 12/19/20 Unknown riboflavin (vitamin B2) 400 mg 400 mg PO DAILY 12/19/20 12/19/20 Unknown tablet NPO Date Last Intake of Fluids: 12/19/20 Time Last Intake of Fluids: 12:30 Last Intake of Fluids Comment: large coffee Date Last Intake of Solids: 12/18/20 Time Last Intake of Solids: 18:30 Past Medical History Medical History Anxiety Chronic neck pain CERVICAL EPIDURAL STEROID INJECTIONS. PT HAS 3 BULGING DISCS. OCCASIONAL ARM NUMBNESS. FULL ROM, OCCASIONAL PAIN WITH MOVEMENT. FOLLOWS WITH DR. WONG. Degenerative disc disease Diverticular disease GERD (gastroesophageal reflux disease) Hiatal hernia Hypothyroidism Migraine Osteoarthritis Peptic ulcer disease Urinary tract infection OCCASIONAL Past Family History Family History Sister Family history of reaction to anesthesia "WOKE UP STIFF A BOARD" WITH HYSTERECTOMY (~10 YEARS AGO, AT [facility]). Mother Leukemia Denies family history of Crohn's disease Colorectal cancer IBS (irritable bowel syndrome) Past Surgical History Surgical History Fusion of spine LUMBAR AREA History of cholecystectomy LAP History of colonoscopy History of esophagogastroduodenoscopy (EGD) Social History Smoking Status: Never smoker tobacco type: cigarettes Hx Alcohol Use: Yes Alcohol type: wine and hard liquor alcohol intake frequency: a few times a month Hx Substance Use: No substance use type: does not use Physical Exam Vital Signs Last Vital Signs Temp 36.7 C 12/19/20 19:34 Pulse 83 12/19/20 19:34 Resp 16 12/19/20 19:34 BP 127/82 12/19/20 19:34 Pulse Ox 99 12/19/20 19:34 Testing Laboratory Results 12/19/20 17:30 12/19/20 17:30
[2020-12-19] MEDS ORDERED: METOCLOPRAMIDE HCL INJ 5 MG/ML 2 ML VIAL IV PRN (20:18)
[2020-12-19] MEDS ORDERED: HYDROmorphone INJ 2 MG/ML SYR/VIAL IV PRN (20:18)
[2020-12-19] MEDS ORDERED: PROMETHAZINE HCL 12.5 MG in SODIUM CHLORIDE 0.9% 50 ML IV PRN (20:18)
[2020-12-19] MEDS ORDERED: ePHEDrine sulfate 50 MG/ML AMP IV PRN (20:18)
[2020-12-19] MEDS ORDERED: ONDANSETRON INJ 2 MG/ML 2 ML VIAL IV PRN ×2 (20:18→20:45)
[2020-12-19] MEDS ORDERED: ATROPINE SULFATE 0.1 MG/ML 10ML SYR IV PRN (20:18)
[2020-12-19] MEDS ORDERED: NEOSTIGMINE METHYLSULFATE 1 MG/ML 10ML VIAL ONE (20:31)
[2020-12-19] MEDS ORDERED: GLYCOPYRROLATE 0.2 MG/ML VIAL ONE (20:31)
[2020-12-19] MEDS ORDERED: ROCURONIUM BROMIDE 10 MG/ML 5 ML VIAL IV ONE (20:32)
[2020-12-19] MEDS ORDERED: PROPOFOL IV EMULSION 10 MG/ML 20 ML VIAL IV ONE (20:32)
[2020-12-19] MEDS ORDERED: LIDOCAINE 2% 2 ML VIAL/AMP(20MG/ML) INFIL ONE (20:32)
[2020-12-19] MEDS ORDERED: ONDANSETRON INJ 2 MG/ML 2 ML VIAL ONE (20:32)
[2020-12-19] MEDS ORDERED: DEXAMETHASONE SOD INJ 4 MG/ML VIAL ONE (20:32)
--- NOTE | 2020-12-19 20:41 | Post Operative Brief Note ---
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
[2020-12-19] MEDS: fentaNYL citrate 100 MCG/2 ML VIAL IV PRN ×3 (20:58→21:28)
--- NOTE | 2020-12-19 21:46 | Operative Report (OR) ---
DATE OF PROCEDURE: 12/19/2020 PREOPERATIVE DIAGNOSIS: Acute appendicitis. POSTOPERATIVE DIAGNOSIS: Acute appendicitis. OPERATION: Laparoscopic appendectomy. SURGEON: Manish London MD. ANESTHESIA: General. ESTIMATED BLOOD LOSS: About 10 mL. FINDINGS: Acute appendicitis. COMPLICATIONS: None. INDICATIONS FOR THE PROCEDURE: This is a 60-year-old female who presented to ED with abdominal pain in the right lower quadrant area and patient had also a CT scan diagnosis of appendicitis. I recomme nd to do laparoscopic appendectomy, possible open. I did talk to the patient about the benefit, risk , alternate procedure. I indicated the risks may include, but not limited to, such as bleeding, infe ction, abscess, injury to other organs, maybe negative appendicitis, but still need appendectomy, олег cardial infarction, DVT, stroke, even , incisional hernia. The patient understands. She signed informed consent and I answered all questions. DETAILS OF PROCEDURE: After we identified the patient and verified the procedure, we brought the pat ient to the OR, put the patient in the supine position on the OR table. The patient received SCD on bilateral legs to prevent DVT. Also, patient received 500 mg of Flagyl for prophylactic antibiotic. Also, the patient received general anesthesia without difficulty. The abdomen was prepped and drape d in routine sterile fashion. After timeout, I injected the local anesthesia by using 1% lidocaine m ixed with 0.5% Marcaine just above the umbilicus, then I made a small incision just above umbilicus, opened fascia, opened peritoneum. Under direct vision, put a Nikole trocar in, connected to CO2 to c reate pneumoperitoneum, flow rate at 6 liters per minute, pressure not more than 14 mmHg. Once we get a nice pneumoperitoneum, we put a camera in, looked around the abdomen, it shows normal f inding on the small bowel and large bowel and no free flow in the pelvic area. At this moment, we pu t another two 5 mm trocars in the left lower quadrant area. Then we mobilized the cecum area, found the patient had an enlarged appendix, size about 8 mm in diameter with some inflammation on the appen sathish, confirmed diagnosis of acute appendicitis. Once we confirmed the diagnosis, we used the Harmonic to take down the appendiceal, rechecked, no act bernard bleeding. Then, we used a 45 mm Endo-LINH stapler for transection on the base of appendix; rechec ked, there was a little bit of bleeding from the staple line. At this moment, I used a 5 mm metal cl ip to clip the staple line bleeding; rechecked, no active bleeding. The staple line intact and no l eak. Then, we removed the appendix through the catch bag. Then, we reinserted the Nikole trocar in, connected to CO2 to create pneumoperitoneum, again looked a round the abdomen, no active bleeding, no leak from the staple line and we removed all trocars under direct vision. No active bleeding from the trocar sites. Pneumoperitoneum was released, then I clos ed the umbilical incision fascial layer by using 0 Vicryl [id number] x2, closed subcutaneous lay er by using 2-0 Vicryl interruptedly, closed skin by using 4-0 Vicryl continuous running, closed anot her two 5 mm trocar site of skin only by using 4-0 Vicryl. Then, we put the dressing on. The patient tolerated the procedure well. All instrument, needle, sponge counts were correct x2 at t he end of the case. The patient was transferred to recovery room in stable condition. The specimen was sent to pathology. After the procedure, I did talk to the patient about the OR finding and the p rocedure we did, patient understands. Job ID: [id number]
--- NOTE | 2020-12-19 21:50 | Anesthesiology Progress Note ---
Date of Service December 19, 2020 Anesthesia Post Procedure Vital Signs Vital Signs: Temp Pulse Pulse Pulse Pulse Resp BP 12/19/20 21:40 36.1 C L 73 16 12/19/20 21:30 70 18 12/19/20 21:20 70 12 12/19/20 21:10 71 21 12/19/20 21:00 73 16 12/19/20 20:52 36.4 C L 78 15 12/19/20 19:34 36.7 C 83 16 12/19/20 18:28 85 18 12/19/20 14:48 37.1 C 86 20 118/75 BP Pulse Ox 12/19/20 21:40 126/78 93 12/19/20 21:30 128/79 94 12/19/20 21:20 137/84 99 12/19/20 21:10 123/80 100 12/19/20 21:00 132/81 100 12/19/20 20:52 130/81 100 12/19/20 19:34 127/82 99 12/19/20 18:28 127/82 98 12/19/20 14:48 96 Pain Intensity Abdomen: Pain Intensity: 4 Transfer of Care Handoff Completed per policy Notes Mental Status: alert / awake / arousable and participated in evaluation Patient Amnestic to Procedure: Yes Nausea / Vomiting: adequately controlled Pain: adequately controlled Airway Patency, RR, SpO2: stable & adequate BP & HR: stable & adequate Hydration State: stable & adequate Anesthetic Complications: no major complications apparent
[2020-12-19] MEDS ORDERED: NON-FORMULARY MEDICATION (Fluoride (Sodium) [Denta 5000 Plus] 1.1 % cream) DT SCH (23:08)
[2020-12-19] MEDS ORDERED: ZOLPIDEM TARTRATE 10 MG TAB PO PRN (23:08)
[2020-12-19] MEDS ORDERED: RIZATRIPTAN BENZOATE 10 MG TAB PO PRN (23:08)
[2020-12-19] MEDS ORDERED: oxyCODONE/ACETAMINOPHEN 5mg/325mg TAB PO PRN (23:08)
[2020-12-19] MEDS ORDERED: LACTATED RINGER'S 1,000 ML IV SCH (23:08)
[2020-12-20] MEDS: metroNIDAZOLE 500 MG TAB PO SCH ×2 (00:24→09:37)
[2020-12-20] MEDS: GABAPENTIN 800 MG TAB PO SCH ×2 (00:26→09:36)
[2020-12-20] MEDS: PANTOprazole 40 MG TAB PO SCH ×2 (00:27→09:35)
[2020-12-20] MEDS: HYDROmorphone INJ 0.5 MG/0.5 ML SYR IV PRN ×2 (00:31→06:22)
[2020-12-20] MEDS ORDERED: LORazepam 1 MG TAB PO PRN (01:03)
[2020-12-20] MEDS ORDERED: LEVOTHYROXINE SODIUM 125 MCG TABLET PO SCH (06:30)
[2020-12-20] MEDS ORDERED: AMITRIPTYLINE HCL 10 MG TAB PO SCH (09:00)
[2020-12-20] MEDS ORDERED: CeleBREX 200 MG CAP PO SCH (09:00)
[2020-12-20] MEDS ORDERED: MAGNESIUM OXIDE 400 MG TAB PO SCH (09:00)
[2020-12-20] MEDS ORDERED: DULoxetine HCL 60 MG CAP PO SCH (09:00)
[2020-12-20] MEDS ORDERED: OXYBUTYNIN CHLORIDE 5 MG TAB PO SCH (09:00)
[2020-12-20] MEDS ORDERED: IPRATROPIUM BROMIDE NASAL SPRAY 0.06% 15ML SCH (09:00)
[2020-12-20] MEDS ORDERED: MELOXICAM 7.5 MG TAB PO SCH (09:00)
[2020-12-20] MEDS ORDERED: NON-FORMULARY MEDICATION (Riboflavin (Vitamin B2) 400 mg tablet) PO SCH (09:00)
[2020-12-20] MEDS ORDERED: CHOLECALCIFEROL 1,000 UNITS 25 MCG TAB PO SCH (09:00)
[2020-12-20] MEDS ORDERED: MULTIVITAMIN TAB PO SCH (09:00)
--- NOTE | 2020-12-20 09:13 | Surgery Progress Note ---
Date of Service December 20, 2020 Assessment & Plan (1) Acute appendicitis: Plan: pt is a 60 year-old female who presents with RLQ apin, IMP: abdominal pain, RLQ pain, appendicitis, plan, I recommend to do laparoscopic appendectomy, possible open , D/W benefits, risks and alternatives of the surgery, the risks - infection, bleeding, abscess, injury other organs, may be negative for appendicitis, but still need to do appendectomy, [place], DVT, stroke, , incisional hernia, pt understood, she agrees with surgery, she signed informed consent, I answered all questions, pre- op antibiotic, 12/20/2020 9: 11AM F/U S/P lap appy, POD 1, I update information to pt about OR finding and the procedure pt had, pt understood, I answered all question, pt is doing fine, pt wants to go home today, the post-op care instruction was given, F/U me 2 weeks, Admission and Anticipated Discharge Date Admission Date: December 19, 2020 Subjective F/U S/P lap appy POD 1 pt feels better, no significant abdominal pain, tolerated diet, no fever, Physical Exam Constitutional: WD/WN, vitals as above Eyes: PERRL, conjunctivae normal, anicteric sclerae Neck: trachea midline, no thyromegaly Respiratory: normal respiratory effort, lungs clear to auscultation Cardiovascular: RRR, no murmur, no edema Gastrointestinal (Abdomen): mild tenderness at incisions site, no rebound pain, all incisions intact, no redness, no drainage, BS + Musculoskeletal: no cyanosis or clubbing, extremities motor strength 5/5 Neurologic: patellar DTR's 2+ bilat, sensation intact Psychiatric: A+Ox3, euthymic affect Results & Data ([facility]) Vital Signs (Past 12 Hours) Vital Signs Temp Pulse Pulse Resp BP Pulse Ox 12/20/20 08:00 36.6 C 76 16 94/58 L 96 12/20/20 05:30 36.6 C 86 16 95/63 L 96 12/20/20 02:30 36.4 C L 87 14 95/61 L 94 12/20/20 01:05 36.8 C 88 16 104/69 95 12/20/20 00:10 36.4 C L 91 H 18 117/72 96 12/19/20 23:35 36.8 C 86 16 115/73 94 12/19/20 23:15 36.8 C 84 18 123/81 96 12/19/20 22:50 82 17 114/77 99 12/19/20 22:30 80 15 126/82 100 12/19/20 22:10 74 13 122/74 100 12/19/20 21:55 75 13 114/79 100 12/19/20 21:40 36.1 C L 73 16 126/78 93 12/19/20 21:30 70 18 128/79 94 12/19/20 21:20 70 12 137/84 99 12/19/20 21:10 71 21 123/80 100 (1) Acute appendicitis Acute appendicitis type: unspecified acute appendicitis type Qualified Code(s): K35.80 - Unspecified acute appendicitis
[2020-12-20 09:20] LABS: Basophils # (auto) 0.01 K/uL (0-0.2); Basophils % (auto) 0.2 %; Hemoglobin 12.2 g/dL (12.0-16.0); Immature Granulocytes # (auto) 0.01 K/uL (0.00-0.02); Immature Granulocytes % (auto) 0.2 %; Lymphocytes # (auto) 0.67 K/uL (1.2-3.4); Lymphocytes % (auto) 10.3 %; Mean Corpuscular Hemoglobin 29.7 pg (25-34); Mean Platelet Volume 9.2 fL (7.4-10.4); Monocytes # (auto) 0.39 K/uL (0.11-0.59); Neutrophils # (auto) 5.41 K/uL (1.4-6.5); Neutrophils % (auto) 83.3 %; Platelet Count 262 K/uL (130-400); RDW Standard Deviation 42.9 fL (36.4-46.3); Red Blood Count 4.11 M/uL (4.2-5.4); White Blood Count 6.49 K/uL (4.8-10.8)
--- NOTE | 2020-12-20 21:37 | Discharge Summary (DS) ---
DATE OF ADMISSION: 12/19/2020. DATE OF DISCHARGE: 12/20/2020. ADMISSION DIAGNOSIS: Acute appendicitis. DISCHARGE DIAGNOSIS: Acute appendicitis. OPERATION: Laparoscopic appendectomy. SURGEON: Manish London MD. DETAILS OF DISCHARGE SUMMARY: This is a 60-year-old female who presented to ED with abdominal pain. The patient had a CT scan diagnosis of acute appendicitis. I took the patient to the OR, we did lap aroscopic appendectomy. The patient tolerated the procedure well. After the procedure, the patient was transferred to the recovery room and then later on transferred to regular floor. The patient is doing fine and she tolerated a diet. No nausea, no vomiting, no fever. PHYSICAL EXAMINATION: VITAL SIGNS: Temperature is 36.6, respiratory rate 16, heart rate 76, blood pressure 94/58, O2 satur ation 96% on room air. GENERAL: Patient is alert, awake, oriented x3. HEENT: Within normal limitation. NEUROLOGIC: Intact. NECK: No JVD. CHEST: Bilateral lung sounds clear. HEART: Normal S1 and S2. No murmur. ABDOMEN: Soft, mild tenderness on the incision site. No rebound pain. No distension. All incision s intact. No redness, no drainage. Bowel sounds positive. EXTREMITIES: No edema. The patient wanted to go home today. I gave the patient postop care instruction. I will follow up t he patient in 2 weeks. The patient understands. Job ID: [id number]
== END 2020-12-20 11:50 | disposition home or self-care (01) ==
LOC: ED 14:32 → ASU 19:17 → 4N 19:17